=== PATIENT | male | born 1950 | race Caucasian/White ===

== ENCOUNTER 2017-02-25 10:29 | Emergency (ER) | payer MEDICARE, OTHER ==
--- NOTE | 2017-02-25 10:57 | ERPHSYRPT ---
- History of Present Illness Time Seen by Provider: 02/25/17 10:48 Source: patient Exam Limitations: no limitations Patient Subjective Stated Complaint: PT REPORTS HE HAD SUDDEN ONLSET OF SOB- STATES HE ALL OF A SUDDEN COULDN'T BREATH-REPORTS THIS IS NOT A PANIC ATTACK BECAUSE HE DOEN'T FEEL LIKE HIS HEART IS RACING ET HE IS NOT SWEATING-DENIES PAIN-DENIES FEVER-DENIES COUGH-DENIES N/V-DENIES NUMBNESS OR TINLGING Triage Nursing Assessment: PT ARRIVED AMBULATORY TO ED ANXIOUS HYPERVENTILATING- PALE-CARE PROVIDED ET PT'S BREATHING BECAME CONTROLLED-NO RETRACTIONS NOTED- LUNGS CLEAR ET EQUAL-PT MOVING ALL EXTREMITIES WITH EASE-ANSWERING ALL QEUSTIONS CORRECTLY WITH NO DIFFICUTLY-PUPILS PERRL Physician History: This is a 66-year-old white male with history of diabetes rheumatoid arthritis and anxiety. Arrives with complaint of sudden onset of shortness of breath felt as if he is going to pass out upon standing up at approximately 8:30 this morning. He states he's been having some pain in the left of lumbar region after falling several days ago. Has no chest pain. Past medical history includes diabetes type 2, rheumatoid arthritis, arrhythmia Past surgery includes cholecystectomy kidney surgery Timing/Duration: today Severity: moderate Modifying Factors: Improves With: nothing Associated Symptoms: shortness of breath, other (dizziness), No nausea, No vomiting, No abdominal pain, No heartburn, No diaphoresis, No cough, No chills, No chest pain, No fever, No headaches, No loss of appetite, No malaise, No rash , No syncope, No seizure, No weakness Allergies/Adverse Reactions: diazepam [From Valium] Allergy (Mild, Verified 02/25/17 10:46) HYPERATIVITY Home Medications: Alprazolam 0.25 mg [xanAX 0.25 MG] 0.25 mg PO UD 02/25/17 [History] Glimepiride [Amaryl] 1 mg PO DAILY 02/25/17 [History] Metoprolol Succinate 50 mg [Toprol Xl 50 MG] 50 mg PO DAILY 02/25/17 [ History] Ondansetron HCl [Zofran] 4 mg PO UD 02/25/17 [History] Oxycodone HCl/Acetaminophen [Percocet 7.5-325 mg Tablet] 1 each PO UD 02/25/17 [ History] Hx Tetanus, Diphtheria Vaccination/Date Given: Yes Hx Influenza Vaccination/Date Given: No Hx Pneumococcal Vaccination/Date Given: No Immunizations Up to Date: Yes - Review of Systems Constitutional: No Fever, No Chills Eyes: No Symptoms Ears, Nose, & Throat: No Symptoms Respiratory: Dyspnea, No Cough, No Cyanosis, No Dyspnea on Exertion (FIGUEROA), No Stridor, No Wheezing Cardiac: No Chest Pain, No Edema, No Syncope Abdominal/Gastrointestinal: No Abdominal Pain, No Nausea, No Vomiting, No Diarrhea Genitourinary Symptoms: No Dysuria Musculoskeletal: No Back Pain, No Neck Pain Skin: No Rash Neurological: Other (patient felt that he was going to pass out), No Dizziness, No Focal Weakness, No Sensory Changes Psychological: No Symptoms Endocrine: No Symptoms All Other Systems: Reviewed and Negative - Past Medical History Pertinent Past Medical History: Yes Cardiac History: Arrhythmia Endocrine Medical History: Diabetes Type II Musculoskeletal History: Rheumatoid Arthritis Psycho-Social History: Anxiety - Past Surgical History Past Surgical History: Yes Gastrointestinal: Cholecystectomy Genitourinary: Kidney Surgery - Social History Smoking Status: Never smoker Exposure to second hand smoke: No Drug Use: none Patient Lives Alone: No - Nursing Vital Signs Nursing Vital Signs: Initial Vital Signs Temperature 97.9 F 02/25/17 10:41 Pulse Rate 60 02/25/17 10:41 Respiratory Rate 22 02/25/17 10:41 Blood Pressure 151/86 02/25/17 10:41 O2 Sat by Pulse Oximetry 100 02/25/17 10:41 Pain Scale Pain Intensity 0 - Physical Exam General Appearance: no apparent distress, alert Eye Exam: PERRL/EOMI, eyes nml inspection Ears, Nose, Throat Exam: normal ENT inspection, TMs normal, pharynx normal, moist mucous membranes Neck Exam: normal inspection, non-tender, supple, full range of motion Respiratory Exam: normal breath sounds, lungs clear, No respiratory distress Cardiovascular Exam: regular rate/rhythm, normal heart sounds, normal peripheral pulses Gastrointestinal/Abdomen Exam: soft, normal bowel sounds, No tenderness, No mass Back Exam: normal inspection, normal range of motion, No CVA tenderness, No vertebral tenderness Extremity Exam: normal inspection, normal range of motion, pelvis stable Neurologic Exam: alert, oriented x 3, cooperative, normal mood/affect, nml cerebellar function, nml station & gait, sensation nml, No motor deficits Skin Exam: normal color, warm, dry, No rash Lymphatic Exam: No adenopathy SpO2 Interpretation: normal (100%) SpO2: 100 Oxygen Delivery: Room Air - Course Nursing assessment & vital signs reviewed: Yes EKG Interpreted by Me: RATE (50 bpm), Sinus Alex, NORMAL AXIS, Other (EKG: Sinus bradycardia, 50 bpm, normal axis, no acute ST or T wave changes noted) - Radiology Exams Chest X-ray Interpretation: Discussed w/ radiologist (chest x-ray: Impression: Nonacute underinflated chest with chronic features) Ordered Tests: Active Orders 24 hr Category Date Time Status Accucheck STAT Care 02/25/17 10:52 Active EKG-ER Only STAT Care 02/25/17 10:51 Active IV Insertion STAT Care 02/25/17 10:51 Active Orthostatic Vital Signs STAT Care 02/25/17 10:53 Active CHEST 1 VIEW (PORTABLE) Stat Exams 02/25/17 11:38 Completed AMYLASE Stat Lab 02/25/17 10:50 Completed CBC W DIFF Stat Lab 02/25/17 10:50 Completed CMP Stat Lab 02/25/17 10:50 Completed D-DIMER QUANTITATION Stat Lab 02/25/17 10:50 Completed LIPASE Stat Lab 02/25/17 10:50 Completed PROTIME WITH INR Stat Lab 02/25/17 11:39 Completed PTT Stat Lab 02/25/17 11:39 Completed TROPONIN Q3H Lab 02/25/17 10:50 Completed TROPONIN Q3H Lab 02/25/17 14:00 Ordered TROPONIN Q3H Lab 02/25/17 17:00 Ordered TROPONIN Q3H Lab 02/25/17 20:00 Ordered TROPONIN Q3H Lab 02/25/17 23:00 Ordered UA W/ MICROSCOPIC Stat Lab 02/25/17 11:45 Results Urine Triage Profile Stat Lab 02/25/17 11:45 Completed Medication Summary Generic Name Dose Route Start Last Admin Trade Name Freq PRN Reason Stop Dose Admin Sodium Chloride 1,000 mls @ 100 mls/hr 02/25/17 11:00 02/25/17 11:02 Sodium Chloride 0.9% 1000 Ml IV 03/27/17 10:59 100 mls/hr .Q10H JORDAN Administration Lab/Rad Data: Laboratory Result Diagrams 02/25/17 10:50 02/25/17 10:50 Laboratory Results 02/25/17 02/25/17 02/25/17 Range/Units 11:45 11:45 11:39 WBC (4.0-10.5) K/mm3 RBC (4.1-5.6) M/mm3 Hgb (12.5-18.0) gm/dl Hct (42-50) % MCV (78-100) fl MCH (26-32) pg MCHC (32-36) g/dl RDW (11.5-14.0) % Plt Count (150-450) K/mm3 MPV (6-9.5) fl Gran % (36.0-66.0) % Lymphocytes % (24.0-44.0) % Monocytes % (0.0-12.0) % Eosinophils % (0.00-5.0) % Basophils % (0.0-0.4) % Basophils # (0-0.4) INR 1.13 (0.8-3.0) APTT 30.7 (24.1-36.1) SECONDS D-Dimer (0-500) ng/mL Sodium (136-145) mEq/L Potassium (3.5-5.1) mEq/L Chloride (98-107) mEq/L Carbon Dioxide (21-32) mEq/L Anion Gap (5-15) MEQ/L BUN (9-20) mg/dL Creatinine (0.55-1.30) mg/dl Estimated GFR ML/MIN Glucose (70-110) MG/DL Calcium (8.5-10.1) mg/dL Total Bilirubin (0.2-1.0) mg/dL AST (15-37) U/L ALT (12-78) U/L Alkaline Phosphatase (46-116) U/L Troponin I (0.000-0.056) ng/ml Serum Total Protein (6.4-8.2) gm/dL Albumin (3.4-5.0) g/dL Amylase (25-115) U/L Lipase (73-393) U/L Ur Collection Type VOID Urine Color YELLOW (YELLOW) Urine Appearance CLEAR (CLEAR) Urine pH 5.0 (5-6) Ur Specific [place] 1.020 (1.005-1.025) Urine Protein NEGATIVE (Negative) Urine Ketones TRACE (NEGATIVE) Urine Blood NEGATIVE (0-5) Prashanth/ul Urine Nitrite NEGATIVE (NEGATIVE) Urine Bilirubin NEGATIVE (NEGATIVE) Urine Urobilinogen NORMAL (0-1) mg/dL Ur Leukocyte Esterase NEGATIVE (NEGATIVE) Urine Microscopic RBC 0-2 (0-2) /HPF Urine Microscopic WBC 0-2 (0-5) /HPF Ur Epithelial Cells RARE (FEW) /HPF Urine Culture Reflexed Pending Urine Glucose 50 (NEGATIVE) mg/dL Urine Opiates Level NEG. (NEGATIVE) Ur Methadone NEG. (NEGATIVE) Urine Barbiturates NEG. (NEGATIVE) Ur Phencyclidine (PCP) NEG. (NEGATIVE) Urine Amphetamine NEG. (NEGATIVE) U Benzodiazepine Level NEG. (NEGATIVE) Urine Cocaine NEG. (NEGATIVE) Urine Marijuana (THC) NEG. (NEGATIVE) Specimen Received 02/25/17 1215 02/25/17 02/25/17 02/25/17 Range/Units 10:50 10:50 10:50 WBC (4.0-10.5) K/mm3 RBC (4.1-5.6) M/mm3 Hgb (12.5-18.0) gm/dl Hct (42-50) % MCV (78-100) fl MCH (26-32) pg MCHC (32-36) g/dl RDW (11.5-14.0) % Plt Count (150-450) K/mm3 MPV (6-9.5) fl Gran % (36.0-66.0) % Lymphocytes % (24.0-44.0) % Monocytes % (0.0-12.0) % Eosinophils % (0.00-5.0) % Basophils % (0.0-0.4) % Basophils # (0-0.4) INR (0.8-3.0) APTT (24.1-36.1) SECONDS D-Dimer 2223 H* (0-500) ng/mL Sodium 136 (136-145) mEq/L Potassium 4.2 (3.5-5.1) mEq/L Chloride 99 (98-107) mEq/L Carbon Dioxide 24.7 (21-32) mEq/L Anion Gap 16.0 H (5-15) MEQ/L BUN 19 (9-20) mg/dL Creatinine 1.51 H (0.55-1.30) mg/dl Estimated GFR 49 ML/MIN Glucose 172 H (70-110) MG/DL Calcium 9.8 (8.5-10.1) mg/dL Total Bilirubin 1.00 (0.2-1.0) mg/dL AST 79 H (15-37) U/L ALT 66 (12-78) U/L Alkaline Phosphatase 143 H (46-116) U/L Troponin I < 0.017 (0.000-0.056) ng/ml Serum Total Protein 8.4 H (6.4-8.2) gm/dL Albumin 3.7 (3.4-5.0) g/dL Amylase 97 (25-115) U/L Lipase 340 (73-393) U/L Ur Collection Type Urine Color (YELLOW) Urine Appearance (CLEAR) Urine pH (5-6) Ur Specific [place] (1.005-1.025) Urine Protein (Negative) Urine Ketones (NEGATIVE) Urine Blood (0-5) Prashanth/ul Urine Nitrite (NEGATIVE) Urine Bilirubin (NEGATIVE) Urine Urobilinogen (0-1) mg/dL Ur Leukocyte Esterase (NEGATIVE) Urine Microscopic RBC (0-2) /HPF Urine Microscopic WBC (0-5) /HPF Ur Epithelial Cells (FEW) /HPF Urine Culture Reflexed Urine Glucose (NEGATIVE) mg/dL Urine Opiates Level (NEGATIVE) Ur Methadone (NEGATIVE) Urine Barbiturates (NEGATIVE) Ur Phencyclidine (PCP) (NEGATIVE) Urine Amphetamine (NEGATIVE) U Benzodiazepine Level (NEGATIVE) Urine Cocaine (NEGATIVE) Urine Marijuana (THC) (NEGATIVE) Specimen Received 02/25/17 Range/Units 10:50 WBC 8.6 (4.0-10.5) K/mm3 RBC 4.86 (4.1-5.6) M/mm3 Hgb 13.1 (12.5-18.0) gm/dl Hct 39.5 L (42-50) % MCV 81.3 (78-100) fl MCH 27.0 (26-32) pg MCHC 33.2 (32-36) g/dl RDW 13.2 (11.5-14.0) % Plt Count 267 (150-450) K/mm3 MPV 11.1 H (6-9.5) fl Gran % 68.1 H (36.0-66.0) % Lymphocytes % 19.0 L (24.0-44.0) % Monocytes % 10.6 (0.0-12.0) % Eosinophils % 2.0 (0.00-5.0) % Basophils % 0.3 (0.0-0.4) % Basophils # 0.03 (0-0.4) INR (0.8-3.0) APTT (24.1-36.1) SECONDS D-Dimer (0-500) ng/mL Sodium (136-145) mEq/L Potassium (3.5-5.1) mEq/L Chloride (98-107) mEq/L Carbon Dioxide (21-32) mEq/L Anion Gap (5-15) MEQ/L BUN (9-20) mg/dL Creatinine (0.55-1.30) mg/dl Estimated GFR ML/MIN Glucose (70-110) MG/DL Calcium (8.5-10.1) mg/dL Total Bilirubin (0.2-1.0) mg/dL AST (15-37) U/L ALT (12-78) U/L Alkaline Phosphatase (46-116) U/L Troponin I (0.000-0.056) ng/ml Serum Total Protein (6.4-8.2) gm/dL Albumin (3.4-5.0) g/dL Amylase (25-115) U/L Lipase (73-393) U/L Ur Collection Type Urine Color (YELLOW) Urine Appearance (CLEAR) Urine pH (5-6) Ur Specific [place] (1.005-1.025) Urine Protein (Negative) Urine Ketones (NEGATIVE) Urine Blood (0-5) Prashanth/ul Urine Nitrite (NEGATIVE) Urine Bilirubin (NEGATIVE) Urine Urobilinogen (0-1) mg/dL Ur Leukocyte Esterase (NEGATIVE) Urine Microscopic RBC (0-2) /HPF Urine Microscopic WBC (0-5) /HPF Ur Epithelial Cells (FEW) /HPF Urine Culture Reflexed Urine Glucose (NEGATIVE) mg/dL Urine Opiates Level (NEGATIVE) Ur Methadone (NEGATIVE) Urine Barbiturates (NEGATIVE) Ur Phencyclidine (PCP) (NEGATIVE) Urine Amphetamine (NEGATIVE) U Benzodiazepine Level (NEGATIVE) Urine Cocaine (NEGATIVE) Urine Marijuana (THC) (NEGATIVE) Specimen Received - Progress Progress: improved Progress Note: 02/25/17 12:32 This 66-year-old white male with history of rheumatoid arthritis diabetes arrhythmia and anxiety Patient with sudden onset of shortness of breath dizziness at about 8:30 this morning. Patient states this did not feel like his anxiety episode secondary to he was not having a rapid heart rate. Patient with a sinus bradycardia on EKG labs essentially normal with the exception of a d-dimer of 2223 which is elevated. Patient with a GFR of 49 therefore cannot give the patient contrast for CTA. Patient is being given IV fluids vitals are stable he does have a history of a fall several days ago and some complaints of some mild left posterior low lumbar pain laterally. EKG appears to be stable orthostatic vital signs are stable. Patient wishes to go to [facility] if admitted. I contacted Juan Carlos Jackson at [facility] emergency room he has excepted the patient for transfer. Will forgo anticoagulants at this point in view of patient's recent fall. Patient will most likely received a VQ scan or other studies at [facility]. - Departure Time of Disposition: 12:35 Departure Disposition: Transfer ([facility] ) Clinical Impression: Shortness of breath, Dizziness Condition: Fair Critical Care Time: No Referrals: JANETT EUGENE [Primary Care Provider] -
[2017-02-25] MEDS ORDERED: Sodium Chloride 0.9% 1000 ML 1,000 ML IV SCH (11:00)
[2017-02-25] MEDS ORDERED: Sodium Chloride 0.9% 1000 ML 1,000 ML ONE (11:00)
[2017-02-25 11:04] LABS: BASOPHIL % 0.3 % (0.0-0.4); Granulocytes % 68.1 % (36.0-66.0); Mean Cell Volume 81.3 fl (78-100); Mean Platelet Volume 11.1 fl (6-9.5); Monocytes % 10.6 % (0.0-12.0); Platelet Count 267 K/mm3 (150-450); Red Blood Count 4.86 M/mm3 (4.1-5.6); Red Cell Distribution Width 13.2 % (11.5-14.0); White Blood Count 8.6 K/mm3 (4.0-10.5)
[2017-02-25 11:20] LABS: ALBUMIN 3.7 g/dL (3.4-5.0); Carbon Dioxide 24.7 mEq/L (21-32); Potassium 4.2 mEq/L (3.5-5.1); Total Protein 8.4 gm/dL (6.4-8.2)
[2017-02-25 11:52] LABS: INR 1.13 (0.8-3.0); PROTIME 12.6 SECONDS (8.83-12.87)
[2017-02-25 11:55] LABS: PTT 30.7 SECONDS (24.1-36.1)
[2017-02-25 11:57] VITALS: O2SAT 100
--- NOTE | 2017-02-25 12:09 | XRAY ---
Indication: Short of breath. Comparison: July 13, 2016. Portable chest remains underinflated accentuating the cardiopulmonary structures. Stable left mid lung calcified granuloma. No focal infiltrate, consolidation, or large effusion. Heart is not enlarged for AP portable technique. Bony thorax intact again with degenerative changes. Impression: Nonacute underinflated chest with chronic features.
[2017-02-25 12:24] LABS: Bilirubin NEGATIVE (NEGATIVE); Blood NEGATIVE Ery/ul (0-5); COMPLETE URINE MICROSCOPIC? YES; Collection Type VOID; Leukocyte Esterase NEGATIVE (NEGATIVE)
[2017-02-25 12:25] LABS: Epithelial Cells RARE /HPF (FEW); Glucose 50 mg/dL (NEGATIVE); WBC 0-2 /HPF (0-5)
[2017-02-25 13:14] VITALS: BP 141/75; PULSE 57
[2017-02-25 15:30] LABS: ADD URINE CULTURE? NO (NO)
== END 2017-02-25 13:21 | disposition short-term general hospital (02) ==
LOC: ED 10:29
DX: R06.02 Shortness of breath (principal); R42 Dizziness and giddiness; E11.9 Type 2 diabetes mellitus without complications
CPT/HCPCS: 36000; 36415; 71010; 80053; 80307; 81000; 82150; 82962; 83690; 84484; 85025; 85379; 85610; 85730; 93005; 96360; 96361; 99285

== ENCOUNTER 2017-04-22 09:15 | Emergency (ER) | payer MEDICARE, OTHER ==
[2017-04-22] MEDS ORDERED: Vistaril 50 MG/ML IM ONE ×2 (09:30→09:44)
[2017-04-22] MEDS ORDERED: Sodium Chloride 0.9% 1000 ML 1,000 ML IV SCH (09:30)
--- NOTE | 2017-04-22 09:40 | ERPHSYRPT ---
- History of Present Illness Time Seen by Provider: 04/22/17 09:23 Source: patient Patient Subjective Stated Complaint: pt here for panic attack today but states he is been more nervous the last 10 days, Triage Nursing Assessment: pt alert, resp labored at times, anxious, skin w/d pink, chest easy, Physician History: CC: anxious Hx: 67 y/o patient of dr Janett Causey with hx of anxiety for which he uses xanax prn. He has been anxious for a couple of weeks. Off and on problems with this in the past. He read on the internet about using deep breathing techniques and that usually helps him feel better. He has been to ER twice for this in the past. He has no specific stress or inciting event. He felt more anxious today, chest pressure, short of breath, dizzy when up. 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 No fever, chills, or coughing. He has hx of DM, RA. No hx of heart disease. Allergies/Adverse Reactions: diazepam [From Valium] Allergy (Mild, Verified 04/22/17 09:25) HYPERATIVITY Home Medications: Alprazolam 0.25 mg [xanAX 0.25 MG] 0.25 mg PO UD 02/25/17 [History] Glimepiride [Amaryl] 1 mg PO DAILY 02/25/17 [History] Oxycodone HCl/Acetaminophen [Percocet 7.5-325 mg Tablet] 1 each PO UD 02/25/17 [ History] Hx Tetanus, Diphtheria Vaccination/Date Given: Yes Hx Influenza Vaccination/Date Given: Yes Hx Pneumococcal Vaccination/Date Given: Yes Immunizations Up to Date: Yes - Review of Systems Constitutional: No Fever, No Chills, No Malaise Eyes: No Symptoms, No Vision Changes Ears, Nose, & Throat: No Symptoms Respiratory: Dyspnea, No Cough Cardiac: Chest Pain, No Palpitations, No Syncope Abdominal/Gastrointestinal: No Abdominal Pain, No Nausea, No Vomiting Genitourinary Symptoms: No Symptoms Musculoskeletal: Joint Pain (RA) Neurological: No Focal Weakness, No Parasthesia Psychological: Anxiety, No Alcohol Abuse, No Drug Abuse, No Suicidal Ideations, No Homicidal Ideations All Other Systems: Reviewed and Negative - Past Medical History Pertinent Past Medical History: Yes Cardiac History: Arrhythmia Endocrine Medical History: Diabetes Type II Musculoskeletal History: Rheumatoid Arthritis Psycho-Social History: Anxiety - Past Surgical History Past Surgical History: Yes Gastrointestinal: Cholecystectomy Genitourinary: Kidney Surgery - Social History Smoking Status: Never smoker Exposure to second hand smoke: Yes Drug Use: none Patient Lives Alone: No - Nursing Vital Signs Nursing Vital Signs: Initial Vital Signs Temperature 97.2 F 04/22/17 09:28 Pulse Rate 64 04/22/17 09:28 Respiratory Rate 26 H 04/22/17 09:28 Blood Pressure 147/81 04/22/17 09:28 O2 Sat by Pulse Oximetry 98 04/22/17 09:28 Pain Scale Pain Intensity 0 - Physical Exam General Appearance: alert, other (tall, pacing in room, very anxious appearing) Eye Exam: PERRL/EOMI Ears, Nose, Throat Exam: normal ENT inspection, moist mucous membranes Neck Exam: normal inspection, non-tender, supple Respiratory Exam: normal breath sounds Cardiovascular Exam: regular rate/rhythm, No murmur, No friction rub, No gallop Gastrointestinal/Abdomen Exam: soft, No tenderness, No distention, No mass, No guarding Back Exam: normal inspection Extremity Exam: normal inspection, normal range of motion Neurologic Exam: alert, oriented x 3, 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, 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, nml station & gait, sensation nml, No motor deficits Skin Exam: warm, dry, No rash SpO2 Interpretation: normal SpO2: 98 Oxygen Delivery: Room Air - Course Nursing assessment & vital signs reviewed: Yes EKG Interpreted by Me: RATE (55), Sinus Alex, NORMAL AXIS, NORMAL INTERVALS ( [id number]), NORMAL QRS, NORMAL ST-T, Other (unchanged from prior) - Radiology Exams cxr X-ray Interpretation: Teleradiologist Report, Negative Ordered Tests: Active Orders 24 hr Category Date Time Status [place] STAT Care 04/22/17 09:31 Active Clean Catch Urine Specimen STAT Care 04/22/17 09:30 Active EKG-ER Only STAT Care 04/22/17 09:30 Active IV Insertion STAT Care 04/22/17 09:30 Active CHEST 2 VIEWS (PA AND LAT) Stat Exams 04/22/17 09:31 Completed CBC W DIFF Stat Lab 04/22/17 09:40 Completed CMP Stat Lab 04/22/17 09:40 Completed TROPONIN Q3H Lab 04/22/17 09:45 Completed TROPONIN Q3H Lab 04/22/17 12:45 Ordered TROPONIN Q3H Lab 04/22/17 15:45 Ordered TROPONIN Q3H Lab 04/22/17 18:45 Ordered TROPONIN Q3H Lab 04/22/17 21:45 Ordered UA W/ MICROSCOPIC Stat Lab 04/22/17 10:15 Completed Urine Triage Profile Stat Lab 04/22/17 10:00 Completed Medication Summary Generic Name Dose Route Start Last Admin Trade Name Freq PRN Reason Stop Dose Admin Sodium Chloride 1,000 mls @ 250 mls/hr 04/22/17 09:30 04/22/17 09:45 Sodium Chloride 0.9% 1000 Ml IV 05/22/17 09:29 250 mls/hr .Q4H JORDAN Administration Discontinued Medications Generic Name Dose Route Start Last Admin Trade Name Freq PRN Reason Stop Dose Admin Hydroxyzine HCl 50 mg 04/22/17 09:30 04/22/17 09:44 Vistaril 50 Mg/Ml IM 04/22/17 09:31 50 mg STAT ONE Administration Hydroxyzine HCl Confirm 04/22/17 09:44 Vistaril 50 Mg/Ml Administered 04/22/17 09:45 Dose 50 mg IM .STRefurrl-MED ONE Lab/Rad Data: Laboratory Result Diagrams 04/22/17 09:40 04/22/17 09:40 Laboratory Results 04/22/17 04/22/17 04/22/17 Range/Units 10:15 10:00 09:45 WBC (4.0-10.5) K/mm3 RBC (4.1-5.6) M/mm3 Hgb (12.5-18.0) gm/dl Hct (42-50) % MCV (78-100) fl MCH (26-32) pg MCHC (32-36) g/dl RDW (11.5-14.0) % Plt Count (150-450) K/mm3 MPV (6-9.5) fl Gran % (36.0-66.0) % Lymphocytes % (24.0-44.0) % Monocytes % (0.0-12.0) % Eosinophils % (0.00-5.0) % Basophils % (0.0-0.4) % Basophils # (0-0.4) Sodium (136-145) mEq/L Potassium (3.5-5.1) mEq/L Chloride (98-107) mEq/L Carbon Dioxide (21-32) mEq/L Anion Gap (5-15) MEQ/L BUN (9-20) mg/dL Creatinine (0.55-1.30) mg/dl Estimated GFR ML/MIN Glucose (70-110) MG/DL Calcium (8.5-10.1) mg/dL Total Bilirubin (0.2-1.0) mg/dL AST (15-37) U/L ALT (12-78) U/L Alkaline Phosphatase (46-116) U/L Troponin I < 0.017 (0.000-0.056) ng/ml Serum Total Protein (6.4-8.2) gm/dL Albumin (3.4-5.0) g/dL Ur Collection Type VOID Urine Color YELLOW (YELLOW) Urine Appearance CLEAR (CLEAR) Urine pH 5.0 (5-6) Ur Specific [employer] 1.020 (1.005-1.025) Urine Protein 50 (Negative) Urine Ketones NEGATIVE (NEGATIVE) Urine Blood 5-10 (0-5) Prashanth/ul Urine Nitrite NEGATIVE (NEGATIVE) Urine Bilirubin NEGATIVE (NEGATIVE) Urine Urobilinogen NORMAL (0-1) mg/dL Ur Leukocyte Esterase NEGATIVE (NEGATIVE) Urine Microscopic RBC 2-5 (0-2) /HPF Urine Microscopic WBC 0-2 (0-5) /HPF Ur Epithelial Cells RARE (FEW) /HPF Urine Bacteria RARE (NEGATIVE) /HPF Hyaline Casts 0-2 (0-2) /LPF Granular Casts 0-2 (NEGATIVE) /LPF Urine Mucus SLIGHT (NEGATIVE) /HPF Urine Culture Reflexed NO (NO) Urine Glucose 250 (NEGATIVE) mg/dL Urine Opiates Level NEG. (NEGATIVE) Ur Methadone NEG. (NEGATIVE) Urine Barbiturates NEG. (NEGATIVE) Ur Phencyclidine (PCP) NEG. (NEGATIVE) Urine Amphetamine NEG. (NEGATIVE) U Benzodiazepine Level NEG. (NEGATIVE) Urine Cocaine NEG. (NEGATIVE) Urine Marijuana (THC) NEG. (NEGATIVE) Specimen Received 04/22/17 0915 04/22/17 04/22/17 Range/Units 09:40 09:40 WBC 9.7 (4.0-10.5) K/mm3 RBC 4.71 (4.1-5.6) M/mm3 Hgb 12.3 L (12.5-18.0) gm/dl Hct 38.0 L (42-50) % MCV 80.7 (78-100) fl MCH 26.1 (26-32) pg MCHC 32.4 (32-36) g/dl RDW 13.2 (11.5-14.0) % Plt Count 264 (150-450) K/mm3 MPV 10.7 H (6-9.5) fl Gran % 59.8 (36.0-66.0) % Lymphocytes % 28.7 (24.0-44.0) % Monocytes % 8.7 (0.0-12.0) % Eosinophils % 2.1 (0.00-5.0) % Basophils % 0.7 (0.0-0.4) % Basophils # 0.07 (0-0.4) Sodium 136 (136-145) mEq/L Potassium 3.5 (3.5-5.1) mEq/L Chloride 101 (98-107) mEq/L Carbon Dioxide 22.9 (21-32) mEq/L Anion Gap 16.0 H (5-15) MEQ/L BUN 13 (9-20) mg/dL Creatinine 1.43 H (0.55-1.30) mg/dl Estimated GFR 52 ML/MIN Glucose 194 H (70-110) MG/DL Calcium 8.9 (8.5-10.1) mg/dL Total Bilirubin 0.70 (0.2-1.0) mg/dL AST 60 H (15-37) U/L ALT 33 (12-78) U/L Alkaline Phosphatase 120 H (46-116) U/L Troponin I (0.000-0.056) ng/ml Serum Total Protein 7.6 (6.4-8.2) gm/dL Albumin 3.5 (3.4-5.0) g/dL Ur Collection Type Urine Color (YELLOW) Urine Appearance (CLEAR) Urine pH (5-6) Ur Specific [employer] (1.005-1.025) Urine Protein (Negative) Urine Ketones (NEGATIVE) Urine Blood (0-5) Prashanth/ul Urine Nitrite (NEGATIVE) Urine Bilirubin (NEGATIVE) Urine Urobilinogen (0-1) mg/dL Ur Leukocyte Esterase (NEGATIVE) Urine Microscopic RBC (0-2) /HPF Urine Microscopic WBC (0-5) /HPF Ur Epithelial Cells (FEW) /HPF Urine Bacteria (NEGATIVE) /HPF Hyaline Casts (0-2) /LPF Granular Casts (NEGATIVE) /LPF Urine Mucus (NEGATIVE) /HPF Urine Culture Reflexed (NO) Urine Glucose (NEGATIVE) mg/dL Urine Opiates Level (NEGATIVE) Ur Methadone (NEGATIVE) Urine Barbiturates (NEGATIVE) Ur Phencyclidine (PCP) (NEGATIVE) Urine Amphetamine (NEGATIVE) U Benzodiazepine Level (NEGATIVE) Urine Cocaine (NEGATIVE) Urine Marijuana (THC) (NEGATIVE) Specimen Received - Progress Progress Note: 04/22/17 10:49 The pt feels better after IM vistaril. The tingling in his extermities is now gone. No pain or pressure. Reviewed test results. He is not interested in repeat troponin after discussion. Advised he consider mental health counsellor for biofeedback and anxiety and consider prevention medication. Discussed options of [facility]. He wants to stay close to home so will be referred to geriatric psych at [facility]. Advised no driving and stay with family today. Counseled pt/family regarding: lab results, diagnosis, need for follow-up, rad results - Departure Time of Disposition: 10:52 Departure Disposition: Home Clinical Impression: Panic attacks Condition: Stable Critical Care Time: No Referrals: JANETT CAUSEY [Primary Care Provider] - Instructions: Anxiety -- Adult, Panic Disorder Additional Instructions: No driving today and stay with family. Return for problems or concerns. Follow up with Dr Causey. Yaz Leal ([phone]) will contact you about counsellor appointment.
[2017-04-22] MEDS ORDERED: Sodium Chloride 0.9% 1000 ML 1,000 ML ONE (09:44)
[2017-04-22 09:54] LABS: BASOPHIL % 0.7 % (0.0-0.4); Eosinophil % 2.1 % (0.00-5.0); Granulocytes % 59.8 % (36.0-66.0); Lymphocytes % 28.7 % (24.0-44.0); Mean Cell Volume 80.7 fl (78-100); Mean Corpuscular Hemoglobin 26.1 pg (26-32); Mean Platelet Volume 10.7 fl (6-9.5); Monocytes % 8.7 % (0.0-12.0); Platelet Count 264 K/mm3 (150-450); Red Blood Count 4.71 M/mm3 (4.1-5.6); Red Cell Distribution Width 13.2 % (11.5-14.0); White Blood Count 9.7 K/mm3 (4.0-10.5)
[2017-04-22 10:11] LABS: ALBUMIN 3.5 g/dL (3.4-5.0); BILIRUBIN,TOTAL 0.7 mg/dL (0.2-1.0); Carbon Dioxide 22.9 mEq/L (21-32); Potassium 3.5 mEq/L (3.5-5.1); Total Protein 7.6 gm/dL (6.4-8.2)
[2017-04-22 10:21] LABS: Bilirubin NEGATIVE (NEGATIVE); COMPLETE URINE MICROSCOPIC? YES; Collection Type VOID; Glucose 250 mg/dL (NEGATIVE); Leukocyte Esterase NEGATIVE (NEGATIVE)
[2017-04-22 10:33] LABS: ADD URINE CULTURE? NO (NO); Bacteria RARE /HPF (NEGATIVE); Epithelial Cells RARE /HPF (FEW); GRANULAR CASTS 0-2 /LPF (NEGATIVE); Hyaline Casts 0-2 /LPF (0-2); Mucus SLIGHT /HPF (NEGATIVE); WBC 0-2 /HPF (0-5)
--- NOTE | 2017-04-22 10:35 | XRAY ---
Indication: Chest pain and dyspnea. Anxiety. Comparison: February 25, 2017. PA/lateral chest remains slightly underinflated and clear. Heart and mediastinal structures are stable and within normal limits. Bony thorax intact again with mild degenerative changes. Impression: Stable nonacute chest.
[2017-04-22 10:59] VITALS: O2SAT 98
[2017-04-22 12:28] VITALS: BP 151/70; PULSE 54
== END 2017-04-22 11:17 | disposition home or self-care (01) ==
LOC: ED 09:15
DX: F41.0 Panic disorder [episodic paroxysmal anxiety] (principal); E11.9 Type 2 diabetes mellitus without complications; Z79.899 Other long term (current) drug therapy
CPT/HCPCS: 36000; 36415; 71020; 80053; 80307; 81000; 84484; 85025; 93005; 93041; 96360; 96361; 96372; 99284; J3410

== ENCOUNTER 2020-06-21 17:52 | Emergency (ER) | payer MEDICARE, OTHER ==
[2020-06-21] MEDS ORDERED: BABY ASPIRIN 81 MG CHEW PO ONE (18:26)
[2020-06-21] MEDS ORDERED: Sodium Chloride 0.9% 1000 ML 1,000 ML IV STA (18:26)
[2020-06-21] MEDS ORDERED: Sodium Chloride 0.9% 1000 ML 1,000 ML ONE (18:32)
[2020-06-21] MEDS ORDERED: BABY ASPIRIN 81 MG CHEW ONE (18:32)
[2020-06-21 18:44] LABS: Hematocrit 38.7 % (42-50); Hemoglobin 11.9 gm/dl (12.5-18.0); Mean Cell Volume 85.4 fl (78-100); Mean Corpuscular Hemoglobin 26.3 pg (26-32); Mean Corpuscular Hgb Concent. 30.7 g/dl (32-36); Mean Platelet Volume 11.6 fl (7.5-11.0); Platelet Count 362 K/mm3 (150-450); Red Blood Count 4.53 M/mm3 (4.1-5.6); Red Cell Distribution Width 13.5 % (11.5-14.0); White Blood Count 10.7 K/mm3 (4.0-10.5)
[2020-06-21 19:05] LABS: Appearance CLEAR (CLEAR); Bilirubin NEGATIVE (NEGATIVE); Blood NEGATIVE Ery/ul (0-5); Glucose >=500 mg/dL (NEGATIVE); Ketones TRACE (NEGATIVE); Leukocyte Esterase NEGATIVE (NEGATIVE); Mucus SLIGHT /HPF (NEGATIVE); Nitrite NEGATIVE (NEGATIVE); Protein,Urine Dip 30 (Negative); RBC 0-2 /HPF (0-2); Specific Gravity 1.024 (1.005-1.025); Urobilinogen NEGATIVE mg/dL (0-1); WBC 0-2 /HPF (0-5)
[2020-06-21 19:06] LABS: ALBUMIN 3.9 g/dL (3.5-5.0); ALKALINE PHOSPHATASE 152 U/L (38-126); ANION GAP 18.9 MEQ/L (5-15); BLOOD UREA NITROGEN 17 mg/dL (9-20); CHLORIDE 100 mmol/L (98-107); Calcium 9.9 mg/dL (8.4-10.2); Carbon Dioxide 21 mmol/L (22-30); Creatinine 1 0.97 mg/dL (0.66-1.25); EST GLOMERULAR FILTRATION RATE > 60.0 ML/MIN; Glucose 362 mg/dL (74-106); NT PRO BNP 169 pg/mL (0-900); Potassium 5.8 mmol/L (3.5-5.1); SGOT/AST 22 U/L (17-59); SGPT/ALT 18 U/L (0-50); SODIUM 134 mmol/L (137-145); Total Protein 7.4 g/dL (6.3-8.2)
[2020-06-21 19:15] LABS: Bacteria NONE SEEN /HPF (NEGATIVE)
[2020-06-21 19:38] LABS: Lymphocytes 9 % (24-44); Monocyte 1 % (0.0-12.0); Neutrophils 90 % (36.-66.); Platelet Estimate NORMAL (NORMAL); Total Cells Counted 100
[2020-06-21] MEDS ORDERED: HUMULIN R IV ONE (20:27)
[2020-06-21] MEDS ORDERED: Kayexylate 15 GM/60 ML PO ONE (20:28)
[2020-06-21] MEDS ORDERED: HUMULIN R ONE (20:31)
[2020-06-21] MEDS ORDERED: Kayexylate 15 GM/60 ML ONE (20:31)
[2020-06-21 21:12] VITALS: BP 159/82
--- NOTE | 2020-06-21 21:49 | ERPHSYRPT ---
- History of Present Illness Time Seen by Provider: 06/21/20 18:26 Source: patient Exam Limitations: no limitations Patient Subjective Stated Complaint: Pt statess "I went down into the basement to throw a breaker and when I came upstairs I broke out into sweats and became short of breath and now I am tired." Triage Nursing Assessment: Pt presented alert and oriented X 3, skin wpd pt ambulates with an uprigth steady gait, able to speak in clear full sentences. pt in no apparent respiratory distress. Physician History: 70 years old male with history of hypertension, diabetes mellitus, anxiety disorder presented in the ER with chief complaint of sudden onset sweating/shortness of breath/lightheadedness after he took a flight of stair up and down almost an hour prior to arrival. He sat down and felt as if he was having palpitations without any chest pain. He also report feeling lightheaded with no room spinning or himself spinning sensation. Without any blurry vision numbness tingling or focal weakness. He started to feel weak tired with no energy to do anything. Patient reports his symptoms resolved on presentation in the ER. Does have history of panic attacks but thinks his symptoms are different than usual panic attacks. Denies any nausea vomiting or abdominal pain. Timing/Duration: today, sudden, improved Severity: moderate Associated Symptoms: shortness of breath Allergies/Adverse Reactions: diazepam [From Valium] Allergy (Mild, Verified 04/22/17 09:25) HYPERATIVITY Home Medications: Glimepiride [Amaryl] 1 mg PO DAILY 02/25/17 [History] Oxycodone HCl/Acetaminophen [Percocet 7.5-325 mg Tablet] 1 each PO UD 02/25/17 [History] Terazosin HCl 1 mg [Hytrin 1 mg] 1 mg PO HS 06/21/20 [History] Hx Tetanus, Diphtheria Vaccination/Date Given: No Hx Influenza Vaccination/Date Given: Yes Hx Pneumococcal Vaccination/Date Given: Yes Immunizations Up to Date: Yes Travel Risk - International Travel Have you traveled outside of the country in past 3 weeks: No - Coronavirus Screening Are you exhibiting any of the following symptoms?: Yes Symptoms: Shortness of Breath Close contact with a COVID-19 positive Pt in past 14-21 Days: No - Review of Systems Constitutional: Fatigue, Weakness Eyes: No Symptoms Ears, Nose, & Throat: No Symptoms Respiratory: Dyspnea Cardiac: Palpitations Abdominal/Gastrointestinal: No Symptoms Genitourinary Symptoms: No Symptoms Musculoskeletal: No Symptoms Skin: No Symptoms Neurological: Dizziness Psychological: Anxiety Endocrine: No Symptoms Hematologic/Lymphatic: No Symptoms Immunological/Allergic: No Symptoms - Past Medical History Pertinent Past Medical History: Yes Cardiac History: Arrhythmia Endocrine Medical History: Diabetes Type II Musculoskeletal History: Rheumatoid Arthritis Psycho-Social History: Anxiety - Past Surgical History Past Surgical History: Yes Gastrointestinal: Cholecystectomy Genitourinary: Kidney Surgery - Social History Smoking Status: Never smoker Exposure to second hand smoke: No Drug Use: none Patient Lives Alone: Yes - Nursing Vital Signs Nursing Vital Signs: Initial Vital Signs Temperature 98.4 F 06/21/20 17:58 Pulse Rate 96 H 06/21/20 17:58 Respiratory Rate 22 06/21/20 17:58 Blood Pressure 177/91 06/21/20 17:58 O2 Sat by Pulse Oximetry 100 06/21/20 17:58 Pain Scale Pain Intensity 0 - Physical Exam General Appearance: no apparent distress, alert, anxiety Eye Exam: PERRL/EOMI, eyes nml inspection Ears, Nose, Throat Exam: normal ENT inspection, TMs normal, pharynx normal Neck Exam: normal inspection, non-tender, supple, full range of motion Respiratory Exam: normal breath sounds, lungs clear, No chest tenderness Cardiovascular Exam: regular rate/rhythm, normal heart sounds Gastrointestinal/Abdomen Exam: soft, normal bowel sounds, No tenderness Back Exam: normal inspection, normal range of motion Extremity Exam: normal inspection, normal range of motion, pelvis stable Neurologic Exam: alert, oriented x 3, 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, 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 tested, nml cerebellar function, nml station & gait, sensation nml Skin Exam: normal color SpO2 Interpretation: normal SpO2: 99 O2 Delivery: Room Air - Course EKG Interpreted by Me: RATE (82), Sinus Rhythm, NORMAL AXIS, NORMAL INTERVALS, Q-wave (Anteroinferior) Ordered Tests: Active Orders 24 hr Category Date Time Status Fence Erector STAT Care 06/21/20 18:27 Active EKG-ER Only STAT Care 06/21/20 18:26 Active IV Insertion STAT Care 06/21/20 18:26 Active Orthostatic Vital Signs STAT Care 06/21/20 18:26 Active POCT Glucose Check STAT Care 06/21/20 18:26 Active CHEST 1 VIEW (PORTABLE) Stat Exams 06/21/20 18:27 Taken CHEST WITH CONTRAST [CT] Stat Exams 06/21/20 19:22 Taken CBC W DIFF Stat Lab 06/21/20 18:40 Completed CMP Stat Lab 06/21/20 18:40 Completed D-DIMER QUANTITATIVE Stat Lab 06/21/20 18:40 Completed Manual Differential NC Stat Lab 06/21/20 18:40 Completed NT PRO BNP Stat Lab 06/21/20 18:40 Completed POCT GLUCOSE Stat Lab 06/21/20 18:34 Completed POCT GLUCOSE Stat Lab 06/21/20 20:26 Completed POCT GLUCOSE Stat Lab 06/21/20 21:57 Completed TROPONIN Q3H Lab 06/21/20 18:40 Completed TROPONIN Q3H Lab 06/21/20 21:32 Completed TROPONIN Q3H Lab 06/22/20 00:30 Ordered TROPONIN Q3H Lab 06/22/20 03:30 Ordered TROPONIN Q3H Lab 06/22/20 06:30 Ordered UA W/RFX UR CULTURE Stat Lab 06/21/20 18:32 Completed Medication Summary Discontinued Medications Generic Name Dose Route Start Last Admin Trade Name Freq PRN Reason Stop Dose Admin Aspirin 324 mg 06/21/20 18:26 06/21/20 18:34 Baby Aspirin 81 Mg Chew PO 06/21/20 18:27 324 mg STAT ONE Administration Aspirin Confirm 06/21/20 18:32 Baby Aspirin 81 Mg Chew Administered 06/21/20 18:33 Dose 324 mg .ROUTE .STK-MED ONE Sodium Chloride 1,000 mls @ 499 mls/hr 06/21/20 18:26 06/21/20 18:34 Sodium Chloride 0.9% 1000 Ml IV 06/21/20 20:26 499 mls/hr .Q2H1M STA Administration Sodium Chloride Confirm 06/21/20 18:32 Sodium Chloride 0.9% 1000 Ml Administered 06/21/20 18:33 Dose 1,000 mls @ ud .ROUTE .STK-MED ONE Insulin Human Regular 5 unit 06/21/20 20:27 06/21/20 20:31 Humulin R IV 06/21/20 20:28 5 unit STAT ONE Administration Insulin Human Regular Confirm 06/21/20 20:31 Humulin R Administered 06/21/20 20:32 Dose 5 unit .ROUTE .STK-MED ONE Sodium Polystyrene Sulfonate 30 g 06/21/20 20:28 06/21/20 20:31 Kayexylate 15 Gm/60 Ml PO 06/21/20 20:29 30 g STAT ONE Administration Sodium Polystyrene Sulfonate Confirm 06/21/20 20:31 Kayexylate 15 Gm/60 Ml Administered 06/21/20 20:32 Dose 30 g .ROUTE .STK-MED ONE Lab/Rad Data: Laboratory Result Diagrams 06/21/20 18:40 06/21/20 18:40 Laboratory Results 06/21/20 06/21/20 06/21/20 Range/Units 21:57 21:32 20:26 WBC (4.0-10.5) K/mm3 RBC (4.1-5.6) M/mm3 Hgb (12.5-18.0) gm/dl Hct (42-50) % MCV (78-100) fl MCH (26-32) pg MCHC (32-36) g/dl RDW (11.5-14.0) % Plt Count (150-450) K/mm3 MPV (7.5-11.0) fl Segmented Neutrophils (36.-66.) % Lymphocytes (Manual) (24-44) % Monocytes (Manual) (0.0-12.0) % Platelet Estimate (NORMAL) RBC Morphology D-Dimer (215-500) ng/mL Sodium (137-145) mmol/L Potassium (3.5-5.1) mmol/L Chloride (98-107) mmol/L Carbon Dioxide (22-30) mmol/L Anion Gap (5-15) MEQ/L BUN (9-20) mg/dL Creatinine (0.66-1.25) mg/dL Estimated GFR ML/MIN Glucose (74-106) mg/dL POC Glucometer 190 H 292 H (74 to 106) mg/dL Calcium (8.4-10.2) mg/dL Total Bilirubin (0.2-1.3) mg/dL AST (17-59) U/L ALT (0-50) U/L Alkaline Phosphatase (38-126) U/L Troponin I < 0.012 (0.000-0.034) ng/mL NT-Pro-B Natriuret Pep (0-900) pg/mL Serum Total Protein (6.3-8.2) g/dL Albumin (3.5-5.0) g/dL Urine Color (YELLOW) Urine Appearance (CLEAR) Urine pH (5-6) Ur Specific [place] (1.005-1.025) Urine Protein (Negative) Urine Ketones (NEGATIVE) Urine Blood (0-5) Prashanth/ul Urine Nitrite (NEGATIVE) Urine Bilirubin (NEGATIVE) Urine Urobilinogen (0-1) mg/dL Ur Leukocyte Esterase (NEGATIVE) Urine WBC (Auto) (0-5) /HPF Urine RBC (Auto) (0-2) /HPF U Hyaline Cast (Auto) (0-2) /LPF U Epithel Cells (Auto) (FEW) /HPF Urine Bacteria (Auto) (NEGATIVE) /HPF Urine Mucus (Auto) (NEGATIVE) /HPF Urine Culture Reflexed (NO) Urine Glucose (NEGATIVE) mg/dL 06/21/20 06/21/20 06/21/20 Range/Units 18:40 18:40 18:40 WBC (4.0-10.5) K/mm3 RBC (4.1-5.6) M/mm3 Hgb (12.5-18.0) gm/dl Hct (42-50) % MCV (78-100) fl MCH (26-32) pg MCHC (32-36) g/dl RDW (11.5-14.0) % Plt Count (150-450) K/mm3 MPV (7.5-11.0) fl Segmented Neutrophils (36.-66.) % Lymphocytes (Manual) (24-44) % Monocytes (Manual) (0.0-12.0) % Platelet Estimate (NORMAL) RBC Morphology D-Dimer 2208 H* (215-500) ng/mL Sodium 134 L (137-145) mmol/L Potassium 5.8 H (3.5-5.1) mmol/L Chloride 100 (98-107) mmol/L Carbon Dioxide 21 L (22-30) mmol/L Anion Gap 18.9 H (5-15) MEQ/L BUN 17 (9-20) mg/dL Creatinine 0.97 (0.66-1.25) mg/dL Estimated GFR > 60.0 ML/MIN Glucose 362 H (74-106) mg/dL POC Glucometer (74 to 106) mg/dL Calcium 9.9 (8.4-10.2) mg/dL Total Bilirubin 0.60 (0.2-1.3) mg/dL AST 22 (17-59) U/L ALT 18 (0-50) U/L Alkaline Phosphatase 152 H (38-126) U/L Troponin I < 0.012 (0.000-0.034) ng/mL NT-Pro-B Natriuret Pep 169 (0-900) pg/mL Serum Total Protein 7.4 (6.3-8.2) g/dL Albumin 3.9 (3.5-5.0) g/dL Urine Color (YELLOW) Urine Appearance (CLEAR) Urine pH (5-6) Ur Specific [place] (1.005-1.025) Urine Protein (Negative) Urine Ketones (NEGATIVE) Urine Blood (0-5) Prashanth/ul Urine Nitrite (NEGATIVE) Urine Bilirubin (NEGATIVE) Urine Urobilinogen (0-1) mg/dL Ur Leukocyte Esterase (NEGATIVE) Urine WBC (Auto) (0-5) /HPF Urine RBC (Auto) (0-2) /HPF U Hyaline Cast (Auto) (0-2) /LPF U Epithel Cells (Auto) (FEW) /HPF Urine Bacteria (Auto) (NEGATIVE) /HPF Urine Mucus (Auto) (NEGATIVE) /HPF Urine Culture Reflexed (NO) Urine Glucose (NEGATIVE) mg/dL 06/21/20 06/21/20 06/21/20 Range/Units 18:40 18:34 18:32 WBC 10.7 H (4.0-10.5) K/mm3 RBC 4.53 (4.1-5.6) M/mm3 Hgb 11.9 L (12.5-18.0) gm/dl Hct 38.7 L (42-50) % MCV 85.4 (78-100) fl MCH 26.3 (26-32) pg MCHC 30.7 L (32-36) g/dl RDW 13.5 (11.5-14.0) % Plt Count 362 (150-450) K/mm3 MPV 11.6 H (7.5-11.0) fl Segmented Neutrophils 90 H (36.-66.) % Lymphocytes (Manual) 9 L (24-44) % Monocytes (Manual) 1 (0.0-12.0) % Platelet Estimate NORMAL (NORMAL) RBC Morphology NORMAL D-Dimer (215-500) ng/mL Sodium (137-145) mmol/L Potassium (3.5-5.1) mmol/L Chloride (98-107) mmol/L Carbon Dioxide (22-30) mmol/L Anion Gap (5-15) MEQ/L BUN (9-20) mg/dL Creatinine (0.66-1.25) mg/dL Estimated GFR ML/MIN Glucose (74-106) mg/dL POC Glucometer 313 H (74 to 106) mg/dL Calcium (8.4-10.2) mg/dL Total Bilirubin (0.2-1.3) mg/dL AST (17-59) U/L ALT (0-50) U/L Alkaline Phosphatase (38-126) U/L Troponin I (0.000-0.034) ng/mL NT-Pro-B Natriuret Pep (0-900) pg/mL Serum Total Protein (6.3-8.2) g/dL Albumin (3.5-5.0) g/dL Urine Color YELLOW (YELLOW) Urine Appearance CLEAR (CLEAR) Urine pH 5.0 (5-6) Ur Specific [place] 1.024 (1.005-1.025) Urine Protein 30 (Negative) Urine Ketones TRACE (NEGATIVE) Urine Blood NEGATIVE (0-5) Prashanth/ul Urine Nitrite NEGATIVE (NEGATIVE) Urine Bilirubin NEGATIVE (NEGATIVE) Urine Urobilinogen NEGATIVE (0-1) mg/dL Ur Leukocyte Esterase NEGATIVE (NEGATIVE) Urine WBC (Auto) 0-2 (0-5) /HPF Urine RBC (Auto) 0-2 (0-2) /HPF U Hyaline Cast (Auto) 3-5 (0-2) /LPF U Epithel Cells (Auto) NONE (FEW) /HPF Urine Bacteria (Auto) NONE SEEN (NEGATIVE) /HPF Urine Mucus (Auto) SLIGHT (NEGATIVE) /HPF Urine Culture Reflexed NO (NO) Urine Glucose >=500 (NEGATIVE) mg/dL - Progress Progress: improved, re-examined Progress Note: 06/21/20 22:08 70 years old is evaluated for shortness of breath with some exertion followed by lightheadedness and palpitation and generalized weakness. Patient symptoms completely resolved on presentation in the ER. He was anxious, patient is counseled. EKG did not show any ST elevations. Negative orthostatics. Has negative troponins x2. Has elevated D-dimer and CTA is negative for any acute cardiopulmonary findings. Patient has hyperglycemia with mildly elevated anion gap and borderline bicarb with no ketones suggesting DKA. Is given insulin and his blood sugar is improved. Patient also has hyperkalemia 5.8 but normal T wave elevations are any arrhythmias. I have given him Kayexalate in here and will give 3-day course of 20 mg Lasix and recommended recheck in 1 to 2 days. Patient symptoms could be secondary to anxiety or needs further evaluation by cardiology. Offered observation admission but patient wants to go home as he is back to his baseline. Discussed signs symptoms of worsening needing return to ER which he seems understanding. Discussed outpatient follow-up with cardiology and monitoring of blood sugar blood pressure. 06/21/20 22:11 Counseled pt/family regarding: lab results, diagnosis, need for follow-up, rad results - Departure Departure Disposition: Home Clinical Impression: Lightheadedness, Hyperkalemia, Anxiety Uncontrolled diabetes mellitus Qualifiers: Diabetes mellitus type: type 2 Glycemic state: with hyperglycemia Qualified Code(s): E11.65 - Type 2 diabetes mellitus with hyperglycemia Condition: Stable Critical Care Time: No Referrals: ASHLEY BISHOP MD [Primary Care Provider] - (1-2 days for reevaluation.) BECKY FARRELL [ACTIVE STAFF] - (Call for appointment in 1 to 2 days) Instructions: Dizziness, Nonvertigo, (DC) Additional Instructions: Keep yourself well-hydrated, drink plenty of fluids. Follow-up with primary care physician for reevaluation in 1 to 2 days and also for recheck of potassium. Return to ER if again have palpitations/shortness of breath/lightheadedness or if develop chest pain, numbness tingling weakness or blurry vision etc. take 20 mg Lasix daily for next 3 days. Monitor your blood sugar regularly, keep a log and follow-up with PCP for medication adjustment. Follow-up with medical staff specialist for further evaluation of shortness of breath with exertion. Prescriptions: Furosemide 20 mg [Lasix 20 mg] 20 mg PO DAILY 3 Days #3 tablet
[2020-06-21 22:18] VITALS: PULSE 98; O2SAT 97
--- NOTE | 2020-06-22 08:41 | XRAY ---
Indication: Short of breath. Dizziness. Comparison: December 03, 2017. Portable chest less inflated again with minimal bibasilar fibrosis/scarring. No focal infiltrate, consolidation, or large effusion. Heart is not enlarged for AP portable technique. Bony thorax intact again with degenerative changes. Impression: Continued nonacute chest with chronic features.
--- NOTE | 2020-06-22 08:43 | XRAY ---
Indication: Short of breath, dizziness, lightheaded, and sweating. Elevated d-dimer. Multiple contiguous images obtained through the chest using 80 cc Isovue 370 contrast and PE protocol. Comparison: July 13, 2014. There is good opacification of the pulmonary arteries. Minimal respiration artifact limits evaluation of the more distal lobar and segmental branches. No central pulmonary embolus. Heart is again borderline enlarged. Aorta is normal in course and caliber again with minimal calcifications. No pathologic mediastinal/hilar lymphadenopathy. Lungs inflated again with diffuse scattered bilateral fibrosis/scarring greatest near the lung bases. Stable 4 mm right middle lobe noncalcified nodule adjacent to the minor fissure favored to be benign given stability over the years. No new pulmonary mass/nodule, infiltrate, or effusion. Bony thorax intact again with flowing osteophytes throughout the spine and right shoulder degenerative arthropathy. Limited upper abdomen again demonstrates cholecystectomy clips. Impression: 1. Minimal respiration artifact. No central pulmonary embolus. 2. Stable scattered fibrosis/scarring, benign right middle lobe noncalcified micronodule, and chronic bony findings. 3. Remaining CT chest with contrast exam is negative.
== END 2020-06-21 22:19 | disposition home or self-care (01) ==
LOC: ED 17:52
DX: R06.02 Shortness of breath (principal); R53.1 Weakness; F41.9 Anxiety disorder, unspecified; R42 Dizziness and giddiness; E87.5 Hyperkalemia; R00.2 Palpitations; E11.65 Type 2 diabetes mellitus with hyperglycemia; I10 Essential (primary) hypertension
CPT/HCPCS: 36000; 36415; 71045; 71260; 80053; 81001; 82947; 83880; 84484; 85025; 85379; 93005; 93041; 96360; 96361; 96374; 99285; J1815; A9270-GY

== ENCOUNTER 2020-06-26 00:08 | Emergency (ER) | payer MEDICARE, OTHER ==
--- NOTE | 2020-06-26 01:13 | ERPHSYRPT ---
- History of Present Illness Time Seen by Provider: 06/26/20 01:10 Source: patient Exam Limitations: no limitations Patient Subjective Stated Complaint: pt c/o dizziness, light headed, nauseaous, anxious Triage Nursing Assessment: pt c/o dizziness, light headedness, nausea, anxious, weak. Pt ambulated into ER without difficulty. Pt states, "the dizziness is gone when I lay down but it reappears when I get up and walk around". Lungs clear, heart tones reg, abd soft with active bs x4 quad, nontender. Pt was just in Er a couple days ago for the same thing. Pt has appt with Dr. Chamberlain in am at 0915. Physician History: pt had recurrence of light headed ness again tonight. no trauma. no chest pain or shortness of breath no N/V, no abd pain. Timing/Duration: today Severity: mild Modifying Factors: Improves With: other (standing) Associated Symptoms: denies symptoms Allergies/Adverse Reactions: diazepam [From Valium] Allergy (Mild, Verified 06/26/20 00:24) HYPERATIVITY Home Medications: Glimepiride [Amaryl] 1 mg PO DAILY 02/25/17 [History] Oxycodone HCl/Acetaminophen [Percocet 7.5-325 mg Tablet] 1 each PO UD 02/25/17 [History] Hx Tetanus, Diphtheria Vaccination/Date Given: No Hx Influenza Vaccination/Date Given: No Hx Pneumococcal Vaccination/Date Given: Yes Immunizations Up to Date: No Travel Risk - International Travel Have you traveled outside of the country in past 3 weeks: No - Coronavirus Screening Are you exhibiting any of the following symptoms?: No Close contact with a COVID-19 positive Pt in past 14-21 Days: No - Review of Systems Constitutional: No Fever, No Chills Eyes: No Symptoms Ears, Nose, & Throat: No Symptoms Respiratory: No Cough, No Dyspnea Cardiac: No Chest Pain, No Edema, No Syncope Abdominal/Gastrointestinal: No Abdominal Pain, No Nausea, No Vomiting, No Diarrhea Genitourinary Symptoms: No Dysuria Musculoskeletal: No Back Pain, No Neck Pain Skin: No Rash Neurological: Dizziness, No Focal Weakness, No Sensory Changes Psychological: No Symptoms Endocrine: No Symptoms All Other Systems: Reviewed and Negative - Past Medical History Pertinent Past Medical History: Yes Cardiac History: Arrhythmia, Hypertension Respiratory History: Pneumonia Endocrine Medical History: Diabetes Type II Musculoskeletal History: Rheumatoid Arthritis Psycho-Social History: Anxiety, Panic Disorder - Past Surgical History Past Surgical History: Yes Gastrointestinal: Cholecystectomy Genitourinary: Kidney Surgery - Social History Smoking Status: Never smoker Exposure to second hand smoke: No Drug Use: none Patient Lives Alone: Yes - Nursing Vital Signs Nursing Vital Signs: Initial Vital Signs Temperature 97.6 F 06/26/20 00:09 Pulse Rate 74 06/26/20 00:09 Respiratory Rate 22 06/26/20 00:09 Blood Pressure 149/94 06/26/20 00:09 O2 Sat by Pulse Oximetry 100 06/26/20 00:09 Pain Scale Pain Intensity 0 - Physical Exam General Appearance: no apparent distress, alert Eye Exam: PERRL/EOMI, eyes nml inspection Ears, Nose, Throat Exam: normal ENT inspection, TMs normal, pharynx normal, moist mucous membranes Neck Exam: normal inspection, non-tender, supple, full range of motion Respiratory Exam: normal breath sounds, lungs clear, No respiratory distress Cardiovascular Exam: regular rate/rhythm, normal heart sounds, normal peripheral pulses Gastrointestinal/Abdomen Exam: soft, normal bowel sounds, No tenderness, No mass Back Exam: normal inspection, normal range of motion, No CVA tenderness, No vertebral tenderness Extremity Exam: normal inspection, normal range of motion, pelvis stable Neurologic Exam: alert, oriented x 3, cooperative, normal mood/affect, nml cerebellar function, nml station & gait, sensation nml, No motor deficits Skin Exam: normal color, warm, dry, No rash Lymphatic Exam: No adenopathy SpO2 Interpretation: normal SpO2: 100 O2 Delivery: Room Air - Course Nursing assessment & vital signs reviewed: Yes EKG Interpreted by Me: Sinus Rhythm, Non-specific ST Changes, Other (LVH) - CT Exams Head CT Interpretation: Tele-radiologist Report, No/Intracranial Hemorrhag Soft Tissue Neck CT Interpretation: Tele-radiologist Report, Other (no reported lesions) Ordered Tests: Active Orders 24 hr Category Date Time Status EKG-ER Only STAT Care 06/26/20 01:14 Active IV Insertion STAT Care 06/26/20 01:14 Active NPO (ED) STAT Care 06/26/20 02:40 Active HEAD WITHOUT CONTRAST [CT] Stat Exams 06/26/20 02:40 Taken NECK WITH CONTRAST [CT] Stat Exams 06/26/20 02:38 Taken CBC W DIFF Stat Lab 06/26/20 01:50 Completed CMP Stat Lab 06/26/20 01:50 Completed Lactic Acid Stat Lab 06/26/20 01:55 Completed Lactic Acid Stat Lab 06/26/20 04:03 Received POCT GLUCOSE Stat Lab 06/26/20 00:40 Received POCT GLUCOSE Stat Lab 06/26/20 00:41 Completed T4 (Thyroxine) Stat Lab 06/26/20 01:30 Completed TROPONIN Q3H Lab 06/26/20 01:50 Completed TROPONIN Q3H Lab 06/26/20 03:55 Completed TROPONIN Q3H Lab 06/26/20 07:15 Ordered TROPONIN Q3H Lab 06/26/20 10:15 Ordered TROPONIN Q3H Lab 06/26/20 13:15 Ordered TSH, 3RD Generation Stat Lab 06/26/20 01:30 Completed UA W/RFX UR CULTURE Stat Lab 06/26/20 01:32 Completed Holter Monitor ONCE RT 06/26/20 05:02 Active Medication Summary Discontinued Medications Generic Name Dose Route Start Last Admin Trade Name Freq PRN Reason Stop Dose Admin Alprazolam 0.5 mg 06/26/20 02:44 06/26/20 02:48 Xanax 0.5 Mg PO 06/26/20 02:45 0.5 mg STAT ONE Administration Alprazolam Confirm 06/26/20 02:47 Xanax 0.5 Mg Administered 06/26/20 02:48 Dose 0.5 mg .ROUTE .STK-MED ONE Sodium Chloride 1,000 mls @ 999 mls/hr 06/26/20 01:14 06/26/20 01:25 Sodium Chloride 0.9% 1000 Ml IV 06/26/20 02:14 999 mls/hr .Q1H1M STA Administration Sodium Chloride Confirm 06/26/20 01:23 Sodium Chloride 0.9% 1000 Ml Administered 06/26/20 01:24 Dose 1,000 mls @ ud .ROUTE .STK-MED ONE Lab/Rad Data: Laboratory Result Diagrams 06/26/20 01:50 06/26/20 01:50 Laboratory Results 06/26/20 06/26/20 06/26/20 Range/Units 03:55 03:33 01:55 WBC (4.0-10.5) K/mm3 RBC (4.1-5.6) M/mm3 Hgb (12.5-18.0) gm/dl Hct (42-50) % MCV (78-100) fl MCH (26-32) pg MCHC (32-36) g/dl RDW (11.5-14.0) % Plt Count (150-450) K/mm3 MPV (7.5-11.0) fl Gran % (36.0-66.0) % Eos # (Auto) (0-0.5) Absolute Lymphs (auto) (1.0-4.6) Absolute Monos (auto) (0.0-1.3) Lymphocytes % (24.0-44.0) % Monocytes % (0.0-12.0) % Eosinophils % (0.00-5.0) % Basophils % (0.0-0.4) % Absolute Granulocytes (1.4-6.9) Basophils # (0-0.4) Sodium (137-145) mmol/L Potassium (3.5-5.1) mmol/L Chloride (98-107) mmol/L Carbon Dioxide (22-30) mmol/L Anion Gap (5-15) MEQ/L BUN (9-20) mg/dL Creatinine (0.66-1.25) mg/dL Estimated GFR ML/MIN Glucose (74-106) mg/dL POC Glucometer (74 to 106) mg/dL Lactic Acid 1.9 (0.4-2.0) Calcium (8.4-10.2) mg/dL Total Bilirubin (0.2-1.3) mg/dL AST (17-59) U/L ALT (0-50) U/L Alkaline Phosphatase (38-126) U/L Troponin I < 0.012 (0.000-0.034) ng/mL Serum Total Protein (6.3-8.2) g/dL Albumin (3.5-5.0) g/dL Thyroxine (T4) (5.53-10.96) ug/dL TSH 3rd Generation (0.47-4.68) mIU/L Urine Color (YELLOW) Urine Appearance (CLEAR) Urine pH (5-6) Ur Specific [place] (1.005-1.025) Urine Protein (Negative) Urine Ketones (NEGATIVE) Urine Blood (0-5) Prashanth/ul Urine Nitrite (NEGATIVE) Urine Bilirubin (NEGATIVE) Urine Urobilinogen (0-1) mg/dL Ur Leukocyte Esterase (NEGATIVE) Urine WBC (Auto) (0-5) /HPF Urine RBC (Auto) (0-2) /HPF U Epithel Cells (Auto) (FEW) /HPF Urine Bacteria (Auto) (NEGATIVE) /HPF Urine Mucus (Auto) (NEGATIVE) /HPF Urine Culture Reflexed (NO) Urine Glucose (NEGATIVE) mg/dL Influenza Type A Ag NEGATIVE (NEGATIVE) Influenza Type B Ag NEGATIVE (NEGATIVE) RSV (PCR) NEGATIVE (Negative) SARS-CoV-2 (PCR) NEGATIVE (NEGATIVE) 06/26/20 06/26/20 06/26/20 Range/Units 01:50 01:50 01:50 WBC 10.7 H (4.0-10.5) K/mm3 RBC 4.58 (4.1-5.6) M/mm3 Hgb 11.9 L (12.5-18.0) gm/dl Hct 38.8 L (42-50) % MCV 84.7 (78-100) fl MCH 26.0 (26-32) pg MCHC 30.7 L (32-36) g/dl RDW 13.8 (11.5-14.0) % Plt Count 281 (150-450) K/mm3 MPV 10.6 (7.5-11.0) fl Gran % 74.0 H (36.0-66.0) % Eos # (Auto) 0.17 (0-0.5) Absolute Lymphs (auto) 1.57 (1.0-4.6) Absolute Monos (auto) 0.98 (0.0-1.3) Lymphocytes % 14.7 L (24.0-44.0) % Monocytes % 9.2 (0.0-12.0) % Eosinophils % 1.6 (0.00-5.0) % Basophils % 0.5 (0.0-0.4) % Absolute Granulocytes 7.90 H (1.4-6.9) Basophils # 0.05 (0-0.4) Sodium 135 L (137-145) mmol/L Potassium 4.0 (3.5-5.1) mmol/L Chloride 100 (98-107) mmol/L Carbon Dioxide 28 (22-30) mmol/L Anion Gap 11.3 (5-15) MEQ/L BUN 14 (9-20) mg/dL Creatinine 0.96 (0.66-1.25) mg/dL Estimated GFR > 60.0 ML/MIN Glucose 156 H (74-106) mg/dL POC Glucometer (74 to 106) mg/dL Lactic Acid (0.4-2.0) Calcium 9.4 (8.4-10.2) mg/dL Total Bilirubin 0.80 (0.2-1.3) mg/dL AST 85 H (17-59) U/L ALT 34 (0-50) U/L Alkaline Phosphatase 112 (38-126) U/L Troponin I < 0.012 (0.000-0.034) ng/mL Serum Total Protein 7.2 (6.3-8.2) g/dL Albumin 3.8 (3.5-5.0) g/dL Thyroxine (T4) (5.53-10.96) ug/dL TSH 3rd Generation (0.47-4.68) mIU/L Urine Color (YELLOW) Urine Appearance (CLEAR) Urine pH (5-6) Ur Specific [place] (1.005-1.025) Urine Protein (Negative) Urine Ketones (NEGATIVE) Urine Blood (0-5) Prashanth/ul Urine Nitrite (NEGATIVE) Urine Bilirubin (NEGATIVE) Urine Urobilinogen (0-1) mg/dL Ur Leukocyte Esterase (NEGATIVE) Urine WBC (Auto) (0-5) /HPF Urine RBC (Auto) (0-2) /HPF U Epithel Cells (Auto) (FEW) /HPF Urine Bacteria (Auto) (NEGATIVE) /HPF Urine Mucus (Auto) (NEGATIVE) /HPF Urine Culture Reflexed (NO) Urine Glucose (NEGATIVE) mg/dL Influenza Type A Ag (NEGATIVE) Influenza Type B Ag (NEGATIVE) RSV (PCR) (Negative) SARS-CoV-2 (PCR) (NEGATIVE) 06/26/20 06/26/20 06/26/20 Range/Units 01:32 01:30 00:41 WBC (4.0-10.5) K/mm3 RBC (4.1-5.6) M/mm3 Hgb (12.5-18.0) gm/dl Hct (42-50) % MCV (78-100) fl MCH (26-32) pg MCHC (32-36) g/dl RDW (11.5-14.0) % Plt Count (150-450) K/mm3 MPV (7.5-11.0) fl Gran % (36.0-66.0) % Eos # (Auto) (0-0.5) Absolute Lymphs (auto) (1.0-4.6) Absolute Monos (auto) (0.0-1.3) Lymphocytes % (24.0-44.0) % Monocytes % (0.0-12.0) % Eosinophils % (0.00-5.0) % Basophils % (0.0-0.4) % Absolute Granulocytes (1.4-6.9) Basophils # (0-0.4) Sodium (137-145) mmol/L Potassium (3.5-5.1) mmol/L Chloride (98-107) mmol/L Carbon Dioxide (22-30) mmol/L Anion Gap (5-15) MEQ/L BUN (9-20) mg/dL Creatinine (0.66-1.25) mg/dL Estimated GFR ML/MIN Glucose (74-106) mg/dL POC Glucometer 136 H (74 to 106) mg/dL Lactic Acid (0.4-2.0) Calcium (8.4-10.2) mg/dL Total Bilirubin (0.2-1.3) mg/dL AST (17-59) U/L ALT (0-50) U/L Alkaline Phosphatase (38-126) U/L Troponin I (0.000-0.034) ng/mL Serum Total Protein (6.3-8.2) g/dL Albumin (3.5-5.0) g/dL Thyroxine (T4) 11.8 H (5.53-10.96) ug/dL TSH 3rd Generation 1.570 (0.47-4.68) mIU/L Urine Color YELLOW (YELLOW) Urine Appearance CLEAR (CLEAR) Urine pH 6.0 (5-6) Ur Specific [place] 1.012 (1.005-1.025) Urine Protein NEGATIVE (Negative) Urine Ketones NEGATIVE (NEGATIVE) Urine Blood NEGATIVE (0-5) Prashanth/ul Urine Nitrite NEGATIVE (NEGATIVE) Urine Bilirubin NEGATIVE (NEGATIVE) Urine Urobilinogen NEGATIVE (0-1) mg/dL Ur Leukocyte Esterase NEGATIVE (NEGATIVE) Urine WBC (Auto) NONE (0-5) /HPF Urine RBC (Auto) NONE (0-2) /HPF U Epithel Cells (Auto) NONE (FEW) /HPF Urine Bacteria (Auto) NONE (NEGATIVE) /HPF Urine Mucus (Auto) SLIGHT (NEGATIVE) /HPF Urine Culture Reflexed NO (NO) Urine Glucose NEGATIVE (NEGATIVE) mg/dL Influenza Type A Ag (NEGATIVE) Influenza Type B Ag (NEGATIVE) RSV (PCR) (Negative) SARS-CoV-2 (PCR) (NEGATIVE) - Progress Progress: improved, re-examined Progress Note: 06/26/20 04:55 pt symptoms have resolved and not recurred without arrythmia during monitoring. Discussed with pt and Dr. Ma and all agree to have holter placed and ; risk/benefit discussed with pt , including that serious pathology could still be evolving undetected including potentially fatal cardiac conditions and he does prefer outpt workup to further testing in ER or hosp obs and has the capacity to make this choice. 06/26/20 05:08 Counseled pt/family regarding: lab results, diagnosis, need for follow-up, rad results - Departure Departure Disposition: Home Clinical Impression: Lightheadedness, light headedness of unknown etiology Condition: Good Critical Care Time: No Referrals: ASHLEY CHAMBERLAIN MD [Primary Care Provider] - Instructions: Dizziness, Nonvertigo, (DC), Ambulatory Cardiac Monitoring (DC) Additional Instructions: followup with your as planned /this week and have your holter read as well ; return meantime if any further symptoms or concerns. THis followup is important even though testing has been negative so far since pathology of some conditions could still be evolving undetected, and we have not determined the cause of your symptoms.
[2020-06-26] MEDS ORDERED: Sodium Chloride 0.9% 1000 ML 1,000 ML IV STA (01:14)
[2020-06-26] MEDS ORDERED: Sodium Chloride 0.9% 1000 ML 1,000 ML ONE (01:23)
[2020-06-26 01:51] LABS: Appearance CLEAR (CLEAR); Bilirubin NEGATIVE (NEGATIVE); Blood NEGATIVE Ery/ul (0-5); Glucose NEGATIVE (NEGATIVE); Ketones NEGATIVE (NEGATIVE); Leukocyte Esterase NEGATIVE (NEGATIVE); Mucus SLIGHT /HPF (NEGATIVE); Nitrite NEGATIVE (NEGATIVE); Protein,Urine Dip NEGATIVE (Negative); Specific Gravity 1.012 (1.005-1.025); Urobilinogen NEGATIVE mg/dL (0-1)
[2020-06-26 01:54] LABS: BASOPHIL % 0.5 % (0.0-0.4); Basophil (Absolute #) 0.05 (0-0.4); Eosinophil % 1.6 % (0.00-5.0); Eosinophil (Absolute #) 0.17 (0-0.5); Hematocrit 38.8 % (42-50); Hemoglobin 11.9 gm/dl (12.5-18.0); Lymphocyte (Absolute #) 1.57 (1.0-4.6); Lymphocytes % 14.7 % (24.0-44.0); Mean Cell Volume 84.7 fl (78-100); Mean Corpuscular Hgb Concent. 30.7 g/dl (32-36); Mean Platelet Volume 10.6 fl (7.5-11.0); Monocyte (Absolute #) 0.98 (0.0-1.3); Monocytes % 9.2 % (0.0-12.0); Platelet Count 281 K/mm3 (150-450); Red Blood Count 4.58 M/mm3 (4.1-5.6); Red Cell Distribution Width 13.8 % (11.5-14.0); White Blood Count 10.7 K/mm3 (4.0-10.5)
[2020-06-26 02:06] LABS: ALBUMIN 3.8 g/dL (3.5-5.0); ALKALINE PHOSPHATASE 112 U/L (38-126); ANION GAP 11.3 MEQ/L (5-15); BLOOD UREA NITROGEN 14 mg/dL (9-20); CHLORIDE 100 mmol/L (98-107); Calcium 9.4 mg/dL (8.4-10.2); Carbon Dioxide 28 mmol/L (22-30); Creatinine 1 0.96 mg/dL (0.66-1.25); EST GLOMERULAR FILTRATION RATE > 60.0 ML/MIN; Glucose 156 mg/dL (74-106); SGOT/AST 85 U/L (17-59); SGPT/ALT 34 U/L (0-50); SODIUM 135 mmol/L (137-145); Total Protein 7.2 g/dL (6.3-8.2)
[2020-06-26] MEDS ORDERED: xanAX 0.5 MG PO ONE (02:44)
[2020-06-26] MEDS ORDERED: xanAX 0.5 MG ONE (02:47)
[2020-06-26 03:36] LABS: T4 (Thyroxine) 11.8 ug/dL (5.53-10.96); TSH, 3RD Generation 1.57 mIU/L (0.47-4.68)
[2020-06-26 04:15] LABS: INFLUENZA A NEGATIVE (NEGATIVE); INFLUENZA B NEGATIVE (NEGATIVE); RESPIRATORY SYNCTIAL VIRUS NEGATIVE (Negative)
[2020-06-26 05:03] VITALS: BP 112/64; PULSE 74
[2020-06-26 05:15] VITALS: O2SAT 100
--- NOTE | 2020-06-26 09:33 | XRAY ---
Indication: Dizziness. Multiple contiguous axial images obtained through the head without contrast. Comparison: None Age-appropriate global atrophy. No acute intracranial hemorrhage, abnormal extra-axial fluid collection, or mass effect. Fourth ventricle is midline without hydrocephalus. Doyle-white matter differentiation preserved. Bony calvarium intact. Visualized paranasal sinuses and mastoid air cells are clear. Impression: Negative CT head without contrast exam. Comment: Preliminary interpretation was made by [facility]. No critical discrepancy.
--- NOTE | 2020-06-26 09:36 | XRAY ---
Indication: Dizziness. Multiple contiguous axial images obtained through the neck using 60 cc Isovue 370 contrast. Sagittal and coronal reformatted images obtained. Comparison: None Multiple bilateral dental amalgams produces beam artifact limiting these levels. Parotid and submandibular glands are bilaterally symmetric. Scattered subcentimeter cervical/submandibular lymph nodes bilaterally. No pathologic adenopathy. Major arteries and veins are normal in course and caliber. Thyroid gland enhances with minimal heterogeneity but no focal solid/cystic mass. Supra and infraglottic airway widely patent. Normal epiglottis. Cervical spine intact with mild multilevel degenerative spondylosis. Lung apices are clear. Impression: 1. Mild heterogeneous thyroid gland and cervical degenerative spondylosis. 2. Remaining CT neck with contrast exam is negative. Comment: Preliminary interpretation was made by [facility]. No critical discrepancy.
== END 2020-06-26 05:35 | disposition home or self-care (01) ==
LOC: ED 00:08
DX: R42 Dizziness and giddiness (principal); R11.0 Nausea; R53.1 Weakness; I10 Essential (primary) hypertension; E11.9 Type 2 diabetes mellitus without complications; I49.9 Cardiac arrhythmia, unspecified; Z79.899 Other long term (current) drug therapy
CPT/HCPCS: 0241U; 36000; 36415; 70450; 70491; 80053; 81001; 82947; 83605; 84436; 84443; 84484; 85025; 93005; 93225; 96360; 99284; A9270-GY

== ENCOUNTER 2020-07-19 03:58 | Emergency (ER) | payer MEDICARE, OTHER ==
[2020-07-19 04:14] VITALS: O2SAT 100
--- NOTE | 2020-07-19 04:38 | ERPHSYRPT ---
- History of Present Illness Source: patient Patient Subjective Stated Complaint: pt states he woke up short of breath. sta makenna he has been having some dizziness and feeling light headed. denies chest pain Triage Nursing Assessment: pt alert and oriented, answers questions approp. pt ambulatory with steady gait noted. skin warm and dry. pt short of breath on arrival. lungs cta bilat. pt states he woke up feeling short of breath, states he got more dizzy and light headed Physician History: 70 yo wm w dyspnea and lethargy x30-45 minutes. Pt denies CP/N/V/D/fever/focal weakness/HAWLEY/cough/coryza/dysuria/hematuria. Pt states that he has a h/o anxiety which he is most likely having at present. Symptoms resolving after arrival to ER. Timing/Duration: other (30-45 minutes) Activities at Onset: sleep Severity of Dyspnea-Max: moderate Severity of Dyspnea-Current: mild Possible Cause: occasional episodes Modifying Factors: Improves With: other (Waking up at night) Associated Symptoms: insomnia, weakness, No anxiety, No cough, No chest pain/discomfort, No edema, No fever, No loss of appetite, No lightheadedness, No wheezing, No ankle swelling, No chills, No hemoptysis, No calf pain, No dizzi ness, No heaviness, No heart racing, No lightheadedness, No leg swelling, No muscle spasms feet, No muscle spasms hands, No painful breathing, No productive cough, No sweating, No tightness, No tingling face, No tingling hands Allergies/Adverse Reactions: diazepam [From Valium] Allergy (Mild, Verified 07/19/20 04:14) HYPERATIVITY Home Medications: Glimepiride [Amaryl] 1 mg PO DAILY 02/25/17 [History] Oxycodone HCl/Acetaminophen [Percocet 7.5-325 mg Tablet] 1 each PO UD 02/25/17 [History] Leflunomide 10 mg PO DAILY 07/19/20 [History] Hx Tetanus, Diphtheria Vaccination/Date Given: No Hx Influenza Vaccination/Date Given: No Hx Pneumococcal Vaccination/Date Given: Yes Immunizations Up to Date: No Travel Risk - International Travel Have you traveled outside of the country in past 3 weeks: No - Coronavirus Screening Are you exhibiting any of the following symptoms?: No Close contact with a COVID-19 positive Pt in past 14-21 Days: No - Review of Systems Constitutional: Fatigue Eyes: No Symptoms Ears, Nose, & Throat: No Symptoms Respiratory: No Symptoms, Dyspnea Cardiac: No Symptoms Abdominal/Gastrointestinal: No Symptoms Genitourinary Symptoms: No Symptoms Musculoskeletal: No Symptoms, Arthralgias Skin: No Symptoms Neurological: No Symptoms Psychological: No Symptoms, Anxiety Endocrine: No Symptoms, Excessive Sweating Hematologic/Lymphatic: No Symptoms Immunological/Allergic: No Symptoms - Past Medical History Pertinent Past Medical History: Yes Cardiac History: Arrhythmia, Hypertension Respiratory History: Pneumonia Endocrine Medical History: Diabetes Type II Musculoskeletal History: Rheumatoid Arthritis Psycho-Social History: Anxiety, Panic Disorder - Past Surgical History Past Surgical History: Yes Gastrointestinal: Cholecystectomy Genitourinary: Kidney Surgery - Social History Smoking Status: Never smoker Exposure to second hand smoke: No Drug Use: none Patient Lives Alone: Yes Significant Family History: no pertinent family hx - Nursing Vital Signs Nursing Vital Signs: Initial Vital Signs Temperature 97.1 F 07/19/20 04:04 Pulse Rate 80 07/19/20 04:04 Respiratory Rate 26 H 07/19/20 04:04 Blood Pressure 141/80 07/19/20 04:04 O2 Sat by Pulse Oximetry 100 07/19/20 04:04 Pain Scale Pain Intensity 0 - Physical Exam General Appearance: no apparent distress, anxiety Eye Exam: PERRL/EOMI (Pupils very smaLL b) Ears, Nose, Throat Exam: hearing grossly normal, normal ENT inspection, normal pharynx Neck Exam: normal inspection, non-tender, supple, full range of motion, No Br udzinski, No Kernig's, No meningismus, No carotid bruit Respiratory Exam: airway intact, crackles/rales (Faint rales at bases B), No respiratory distress Cardiovascular/Chest Exam: normal heart sounds, regular rate/rhythm, normal peripheral pulses, No murmur, No edema Abdominal/Gastrointestinal Exam: soft, normal bowel sounds Extremity Exam: non-tender, normal range of motion, normal inspection, normal capillary refill, no calf tenderness Neurologic Exam: alert, oriented x 3, cooperative, pattern room attendant II-XII nml as tested, normal mood/affect, nml station & gait, sensation nml, No motor deficits, No sensory deficit Skin Exam: normal color, warm, dry, No rash Lymphatic Exam: No adenopathy SpO2 Interpretation: normal SpO2: 100 O2 Delivery: Room Air - Course Nursing assessment & vital signs reviewed: Yes EKG Interpreted by Me: RATE (NSR/Qwave 3-AVF/Poor R wave progression/Normal QT- QTc/ST-T wave changes) Ordered Tests: Active Orders 24 hr Category Date Time Status EKG-ER Only STAT Care 07/19/20 04:31 Active CBC W DIFF Stat Lab 07/19/20 04:44 Completed CMP Stat Lab 07/19/20 04:44 Completed ETHYL ALCOHOL Stat Lab 07/19/20 04:44 Completed PROTIME WITH INR Stat Lab 07/19/20 04:44 Completed PTT Stat Lab 07/19/20 04:44 Completed TROPONIN Q3H Lab 07/19/20 04:44 Received TROPONIN Q3H Lab 07/19/20 07:45 Ordered TROPONIN Q3H Lab 07/19/20 10:45 Ordered TROPONIN Q3H Lab 07/19/20 13:45 Ordered TROPONIN Q3H Lab 07/19/20 16:45 Ordered UA W/RFX UR CULTURE Stat Lab 07/19/20 04:42 Completed Urine Triage Profile Stat Lab 07/19/20 04:42 Completed Lab/Rad Data: Laboratory Result Diagrams 07/19/20 04:44 07/19/20 04:44 Laboratory Results 07/19/20 07/19/20 07/19/20 Range/Units 04:44 04:44 04:44 WBC 10.0 (4.0-10.5) K/mm3 RBC 4.78 (4.1-5.6) M/mm3 Hgb 12.5 (12.5-18.0) gm/dl Hct 40.1 L (42-50) % MCV 83.9 (78-100) fl MCH 26.2 (26-32) pg MCHC 31.2 L (32-36) g/dl RDW 14.1 H (11.5-14.0) % Plt Count 346 (150-450) K/mm3 MPV 12.1 H (7.5-11.0) fl Gran % 81.8 H (36.0-66.0) % Eos # (Auto) 0.02 (0-0.5) Absolute Lymphs (auto) 1.36 (1.0-4.6) Absolute Monos (auto) 0.42 (0.0-1.3) Lymphocytes % 13.6 L (24.0-44.0) % Monocytes % 4.2 (0.0-12.0) % Eosinophils % 0.2 (0.00-5.0) % Basophils % 0.2 (0.0-0.4) % Absolute Granulocytes 8.18 H (1.4-6.9) Basophils # 0.02 (0-0.4) PT 12.5 (8.83-12.87) SECONDS INR 1.11 (0.8-3.0) APTT 32.0 (24.1-36.1) SECONDS Sodium 135 L (137-145) mmol/L Potassium 4.5 (3.5-5.1) mmol/L Chloride 101 (98-107) mmol/L Carbon Dioxide 19 L (22-30) mmol/L Anion Gap 18.5 H (5-15) MEQ/L BUN 17 (9-20) mg/dL Creatinine 0.98 (0.66-1.25) mg/dL Estimated GFR > 60.0 ML/MIN Glucose 336 H (74-106) mg/dL Calcium 9.5 (8.4-10.2) mg/dL Total Bilirubin 0.50 (0.2-1.3) mg/dL AST 19 (17-59) U/L ALT 19 (0-50) U/L Alkaline Phosphatase 160 H (38-126) U/L Serum Total Protein 7.7 (6.3-8.2) g/dL Albumin 4.1 (3.5-5.0) g/dL Urine Color (YELLOW) Urine Appearance (CLEAR) Urine pH (5-6) Ur Specific [place] (1.005-1.025) Urine Protein (Negative) Urine Ketones (NEGATIVE) Urine Blood (0-5) Prashanth/ul Urine Nitrite (NEGATIVE) Urine Bilirubin (NEGATIVE) Urine Urobilinogen (0-1) mg/dL Ur Leukocyte Esterase (NEGATIVE) Urine WBC (Auto) (0-5) /HPF Urine RBC (Auto) (0-2) /HPF U Epithel Cells (Auto) (FEW) /HPF Urine Bacteria (Auto) (NEGATIVE) /HPF Urine Mucus (Auto) (NEGATIVE) /HPF Urine Culture Reflexed (NO) Urine Glucose (NEGATIVE) mg/dL Urine Opiates Level (NEGATIVE) Ur Methadone (NEGATIVE) Urine Barbiturates (NEGATIVE) Ur Phencyclidine (PCP) (NEGATIVE) Urine Amphetamine (NEGATIVE) U Benzodiazepine Level (NEGATIVE) Urine Cocaine (NEGATIVE) Urine Marijuana (THC) (NEGATIVE) Ethyl Alcohol < 10 (0-10) mg/dL 07/19/20 07/19/20 Range/Units 04:42 04:42 WBC (4.0-10.5) K/mm3 RBC (4.1-5.6) M/mm3 Hgb (12.5-18.0) gm/dl Hct (42-50) % MCV (78-100) fl MCH (26-32) pg MCHC (32-36) g/dl RDW (11.5-14.0) % Plt Count (150-450) K/mm3 MPV (7.5-11.0) fl Gran % (36.0-66.0) % Eos # (Auto) (0-0.5) Absolute Lymphs (auto) (1.0-4.6) Absolute Monos (auto) (0.0-1.3) Lymphocytes % (24.0-44.0) % Monocytes % (0.0-12.0) % Eosinophils % (0.00-5.0) % Basophils % (0.0-0.4) % Absolute Granulocytes (1.4-6.9) Basophils # (0-0.4) PT (8.83-12.87) SECONDS INR (0.8-3.0) APTT (24.1-36.1) SECONDS Sodium (137-145) mmol/L Potassium (3.5-5.1) mmol/L Chloride (98-107) mmol/L Carbon Dioxide (22-30) mmol/L Anion Gap (5-15) MEQ/L BUN (9-20) mg/dL Creatinine (0.66-1.25) mg/dL Estimated GFR ML/MIN Glucose (74-106) mg/dL Calcium (8.4-10.2) mg/dL Total Bilirubin (0.2-1.3) mg/dL AST (17-59) U/L ALT (0-50) U/L Alkaline Phosphatase (38-126) U/L Serum Total Protein (6.3-8.2) g/dL Albumin (3.5-5.0) g/dL Urine Color YELLOW (YELLOW) Urine Appearance CLEAR (CLEAR) Urine pH 5.0 (5-6) Ur Specific [place] 1.023 (1.005-1.025) Urine Protein NEGATIVE (Negative) Urine Ketones TRACE (NEGATIVE) Urine Blood NEGATIVE (0-5) Prashanth/ul Urine Nitrite NEGATIVE (NEGATIVE) Urine Bilirubin NEGATIVE (NEGATIVE) Urine Urobilinogen NEGATIVE (0-1) mg/dL Ur Leukocyte Esterase NEGATIVE (NEGATIVE) Urine WBC (Auto) 0-2 (0-5) /HPF Urine RBC (Auto) NONE (0-2) /HPF U Epithel Cells (Auto) RARE (FEW) /HPF Urine Bacteria (Auto) NONE SEEN (NEGATIVE) /HPF Urine Mucus (Auto) SLIGHT (NEGATIVE) /HPF Urine Culture Reflexed NO (NO) Urine Glucose >=500 (NEGATIVE) mg/dL Urine Opiates Level NEGATIVE (NEGATIVE) Ur Methadone NEGATIVE (NEGATIVE) Urine Barbiturates NEGATIVE (NEGATIVE) Ur Phencyclidine (PCP) NEGATIVE (NEGATIVE) Urine Amphetamine NEGATIVE (NEGATIVE) U Benzodiazepine Level NEGATIVE (NEGATIVE) Urine Cocaine NEGATIVE (NEGATIVE) Urine Marijuana (THC) NEGATIVE (NEGATIVE) Ethyl Alcohol (0-10) mg/dL - Progress Progress: improved Counseled pt/family regarding: lab results, diagnosis, need for follow-up - Departure Departure Disposition: Home Clinical Impression: Panic attacks, Hyperglycemia Condition: Stable Critical Care Time: No Referrals: ASHLEY CHAMBERLAIN MD [Primary Care Provider] - Instructions: Shortness of Breath (Dyspnea) (DC), Anxiety, Adult (DC) Additional Instructions: Follow up with Dr. Chamberlain Return to ER for chest pain/shortness of breath/Focal weakness
[2020-07-19 04:56] LABS: Appearance CLEAR (CLEAR); Bacteria NONE SEEN /HPF (NEGATIVE); Bilirubin NEGATIVE (NEGATIVE); Blood NEGATIVE Ery/ul (0-5); Epithelial Cells RARE /HPF (FEW); Glucose >=500 mg/dL (NEGATIVE); Ketones TRACE (NEGATIVE); Leukocyte Esterase NEGATIVE (NEGATIVE); Mucus SLIGHT /HPF (NEGATIVE); Nitrite NEGATIVE (NEGATIVE); Protein,Urine Dip NEGATIVE (Negative); Specific Gravity 1.023 (1.005-1.025); Urobilinogen NEGATIVE mg/dL (0-1); WBC 0-2 /HPF (0-5)
[2020-07-19 04:58] LABS: Absolute Neutrophil Ct (ANC) 8.18 (1.4-6.9); BASOPHIL % 0.2 % (0.0-0.4); Basophil (Absolute #) 0.02 (0-0.4); Eosinophil % 0.2 % (0.00-5.0); Eosinophil (Absolute #) 0.02 (0-0.5); Hematocrit 40.1 % (42-50); Hemoglobin 12.5 gm/dl (12.5-18.0); Lymphocyte (Absolute #) 1.36 (1.0-4.6); Lymphocytes % 13.6 % (24.0-44.0); Mean Cell Volume 83.9 fl (78-100); Mean Corpuscular Hemoglobin 26.2 pg (26-32); Mean Corpuscular Hgb Concent. 31.2 g/dl (32-36); Mean Platelet Volume 12.1 fl (7.5-11.0); Monocyte (Absolute #) 0.42 (0.0-1.3); Monocytes % 4.2 % (0.0-12.0); Neutrophil % 81.8 % (36.0-66.0); Platelet Count 346 K/mm3 (150-450); Red Blood Count 4.78 M/mm3 (4.1-5.6); Red Cell Distribution Width 14.1 % (11.5-14.0)
[2020-07-19 05:00] LABS: INR 1.11 (0.8-3.0); PROTIME 12.5 SECONDS (8.83-12.87)
[2020-07-19 05:05] LABS: ALBUMIN 4.1 g/dL (3.5-5.0); ALKALINE PHOSPHATASE 160 U/L (38-126); ANION GAP 18.5 MEQ/L (5-15); BLOOD UREA NITROGEN 17 mg/dL (9-20); CHLORIDE 101 mmol/L (98-107); Calcium 9.5 mg/dL (8.4-10.2); Carbon Dioxide 19 mmol/L (22-30); Creatinine 1 0.98 mg/dL (0.66-1.25); EST GLOMERULAR FILTRATION RATE > 60.0 ML/MIN; ETHYL ALCOHOL < 10 mg/dL (0-10); Glucose 336 mg/dL (74-106); Potassium 4.5 mmol/L (3.5-5.1); SGOT/AST 19 U/L (17-59); SGPT/ALT 19 U/L (0-50); SODIUM 135 mmol/L (137-145); Total Protein 7.7 g/dL (6.3-8.2)
[2020-07-19 05:07] LABS: Amphetamine,Urine NEGATIVE (NEGATIVE); Barbiturate,Urine NEGATIVE (NEGATIVE); Benzodiazepine,Urine NEGATIVE (NEGATIVE); Cocaine,Urine NEGATIVE (NEGATIVE); Methadone,Urine NEGATIVE (NEGATIVE); Opiate,Urine NEGATIVE (NEGATIVE); PCP,Urine NEGATIVE (NEGATIVE); THC,Urine NEGATIVE (NEGATIVE)
[2020-07-19 05:29] VITALS: BP 146/75; PULSE 67
== END 2020-07-19 05:36 | disposition home or self-care (01) ==
LOC: ED 03:58
DX: F41.0 Panic disorder [episodic paroxysmal anxiety] (principal); E11.65 Type 2 diabetes mellitus with hyperglycemia; Z79.891 Long term (current) use of opiate analgesic; I10 Essential (primary) hypertension
CPT/HCPCS: 36000; 36415; 80053; 80307; 81001; 84484; 85025; 85610; 85730; 93005; 99284; G0480

== ENCOUNTER 2021-12-09 13:29 | Emergency (ER) | payer MEDICARE, OTHER ==
[2021-12-09 13:53] VITALS: O2SAT 99
[2021-12-09 14:24] LABS: Absolute Neutrophil Ct (ANC) 6.05 x10^3/uL (1.4-6.9); Basophil (Absolute #) 0.04 x10^3/uL (0-0.4); Eosinophil % 0.6 % (0.00-5.0); Eosinophil (Absolute #) 0.04 x10^3/uL (0-0.5); Hematocrit 36.1 % (42-50); Hemoglobin 11.3 g/dL (12.5-18.0); Lymphocyte (Absolute #) 0.44 x10^3/uL (1.0-4.6); Lymphocytes % 6.4 % (24.0-44.0); Mean Cell Volume 82.4 fL (78-100); Mean Corpuscular Hemoglobin 25.8 pg (26-32); Mean Corpuscular Hgb Concent. 31.3 g/dL (32-36); Mean Platelet Volume 11.1 fL (7.5-11.0); Monocytes % 4.3 % (0.0-12.0); Neutrophil % 87.7 % (36.0-66.0); Platelet Count 238 x10^3/uL (150-450); Red Blood Count 4.38 x10^6/uL (4.1-5.6); Red Cell Distribution Width 15.7 % (11.5-14.0); White Blood Count 6.9 x10^3/uL (4.0-10.5)
--- NOTE | 2021-12-09 14:27 | ERPHSYRPT ---
- History of Present Illness Time Seen by Provider: 12/09/21 13:35 Source: patient Exam Limitations: no limitations Patient Subjective Stated Complaint: States "just doesn't feel right." Started around 30 minutes prior to coming into the ED while at the grocery store. He is weak and tired. States he ran out of his lisinopril and hasn't taken a dose since . Triage Nursing Assessment: Patient ambulated back to ED without difficulties. He is alert. Skin is moist. No SOB noted. Physician History: 71-year-old male with history of hypertension, diabetes mellitus who has not been taking his antihypertensive for the last 3 days presented in the ER with sudden onset feeling of generalized weakness fatigue tiredness and getting dizzy/lightheaded while he was at the grocery store almost 30 minutes prior to arrival. Patient reports he notices blood pressure was elevated and felt heart beating in his eyeballs making him dizzy occasionally. Denies being wobbly or unsteady on his feet. Denies any chest pain palpitations or shortness of breath. Denies having headache numbness tingling or focal weakness. Reports having similar symptoms almost 5 years ago when his blood pressure was elevated. Patient blood pressure is currently 178 systolic. Patient is very anxious during the whole encounter. Timing/Duration: hour(s) (0.5), sudden, improved Severity: moderate Modifying Factors: Worsens With: movement, other Associated Symptoms: malaise, weakness, No nausea, No vomiting, No shortness of breath, No chest pain, No fever, No headaches, No syncope, No seizure Allergies/Adverse Reactions: diazepam [From Valium] Allergy (Mild, Verified 12/09/21 13:39) HYPERATIVITY Home Medications: Oxycodone HCl/Acetaminophen [Percocet 7.5-325 mg Tablet] 1 each PO UD 02/25/17 [History] Glimepiride 2 mg [Amaryl 2 MG] 1 tab PO DAILY 12/09/21 [History] Lisinopril 10 mg [Zestril 10 MG] 1 tab PO DAILY 12/09/21 [History] Trazodone HCl 50 mg [Desyrel 50 mg] 1 tab PO HS 12/09/21 [History] Zolpidem Tartrate 5 mg [Ambien 5 MG Tablet] 1 tab PO HS 12/09/21 [History] Hx Tetanus, Diphtheria Vaccination/Date Given: Yes Hx Influenza Vaccination/Date Given: No Hx Pneumococcal Vaccination/Date Given: No Immunizations Up to Date: Yes Travel Risk - International Travel Have you traveled outside of the country in past 3 weeks: No - Coronavirus Screening Are you exhibiting any of the following symptoms?: Yes Symptoms: Headaches/Body Aches/Fatigue Close contact with a COVID-19 positive Pt in past 14-21 Days: No - Vaccine Status Have you recieved a Covid-19 vaccination: Yes 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: [employer] - Review of Systems Constitutional: Fatigue, Weakness Eyes: No Symptoms Ears, Nose, & Throat: No Symptoms Respiratory: No Symptoms Cardiac: No Symptoms Abdominal/Gastrointestinal: No Symptoms Genitourinary Symptoms: No Symptoms Musculoskeletal: No Symptoms Skin: No Symptoms Neurological: Dizziness, No Focal Weakness, No Gait Changes, No Headache, No Ir ritability, No Sensory Changes Psychological: Anxiety Endocrine: No Symptoms Hematologic/Lymphatic: No Symptoms Immunological/Allergic: No Symptoms - Past Medical History Pertinent Past Medical History: Yes Cardiac History: Arrhythmia, Hypertension Respiratory History: Pneumonia Endocrine Medical History: Diabetes Type II Musculoskeletal History: Rheumatoid Arthritis GI Medical History: Gallbladder Disease Psycho-Social History: Anxiety, Panic Disorder - Past Surgical History Past Surgical History: Yes Gastrointestinal: Cholecystectomy Genitourinary: Kidney Surgery - Social History Smoking Status: Never smoker Exposure to second hand smoke: No Drug Use: none Patient Lives Alone: Yes Significant Family History: no pertinent family hx - Nursing Vital Signs Nursing Vital Signs: Initial Vital Signs Temperature 98.1 F 12/09/21 13:40 Pulse Rate 85 12/09/21 13:40 Respiratory Rate 23 12/09/21 13:40 Blood Pressure 178/99 12/09/21 13:40 O2 Sat by Pulse Oximetry 99 12/09/21 13:40 Pain Scale Pain Intensity 0 - Physical Exam General Appearance: no apparent distress, alert Eye Exam: PERRL/EOMI Ears, Nose, Throat Exam: normal ENT inspection, TMs normal, pharynx normal, moist mucous membranes Neck Exam: normal inspection, non-tender, supple, full range of motion Respiratory Exam: normal breath sounds, lungs clear Cardiovascular Exam: regular rate/rhythm, normal heart sounds Gastrointestinal/Abdomen Exam: soft, normal bowel sounds, No tenderness Back Exam: normal inspection, normal range of motion Extremity Exam: normal inspection, normal range of motion, pelvis stable Neurologic Exam: alert, oriented x 3, cooperative, event designer II-XII nml as tested, nml cerebellar function, nml station & gait, sensation nml, No normal mood/affect (Anxious), No motor deficits, No motor weakness Skin Exam: normal color SpO2 Interpretation: normal SpO2: 99 O2 Delivery: Room Air - Course EKG Interpreted by Me: RATE (82), Sinus Rhythm, NORMAL AXIS (PACs, LVH), NORMAL INTERVALS, Q-wave (Anterior) Ordered Tests: Active Orders 24 hr Category Date Time Status EKG-ER Only STAT Care 12/09/21 13:57 Active IV Insertion STAT Care 12/09/21 13:57 Active Orthostatic Vital Signs STAT Care 12/09/21 13:57 Active CHEST 1 VIEW (PORTABLE) Stat Exams 12/09/21 13:57 Taken HEAD WITHOUT CONTRAST [CT] Stat Exams 12/09/21 13:58 Taken CBC W DIFF Stat Lab 12/09/21 14:05 Completed CMP Stat Lab 12/09/21 14:05 Completed MAGNESIUM Stat Lab 12/09/21 14:05 Completed POCT GLUCOSE Stat Lab 12/09/21 13:53 Completed TROPONIN Q3H Lab 12/09/21 14:05 Completed TROPONIN Q3H Lab 12/09/21 17:00 Ordered TROPONIN Q3H Lab 12/09/21 20:00 Ordered TROPONIN Q3H Lab 12/09/21 23:00 Ordered TROPONIN Q3H Lab 12/10/21 02:00 Ordered UA W/RFX CULTURE Stat Lab 12/09/21 14:00 Completed Medication Summary Discontinued Medications Generic Name Dose Route Start Last Admin Trade Name Freq PRN Reason Stop Dose Admin Lisinopril 10 mg 12/09/21 16:23 Lisinopril 10 Mg Tablet PO 12/09/21 16:24 STAT STA Lab/Rad Data: Laboratory Result Diagrams 12/09/21 14:05 12/09/21 14:05 Laboratory Results 12/09/21 12/09/21 12/09/21 Range/Units 14:19 14:05 14:05 WBC (4.0-10.5) x10^3/uL RBC (4.1-5.6) x10^6/uL Hgb (12.5-18.0) g/dL Hct (42-50) % MCV (78-100) fL MCH (26-32) pg MCHC (32-36) g/dL RDW (11.5-14.0) % Plt Count (150-450) x10^3/uL MPV (7.5-11.0) fL Gran % (36.0-66.0) % Immature Gran % (Auto) (0.00-0.4) % Nucleat RBC Rel Count (0.00-0.1) % Eos # (Auto) (0-0.5) x10^3/uL Immature Gran # (Auto) (0.00-0.03) x10^3u/L Absolute Lymphs (auto) (1.0-4.6) x10^3/uL Absolute Monos (auto) (0.0-1.3) x10^3/uL Absolute Nucleated RBC (0.00-0.01) x10^3u/L Lymphocytes % (24.0-44.0) % Monocytes % (0.0-12.0) % Eosinophils % (0.00-5.0) % Basophils % (0.0-0.4) % Absolute Granulocytes (1.4-6.9) x10^3/uL Basophils # (0-0.4) x10^3/uL Sodium 133 L (137-145) mmol/L Potassium 4.6 (3.5-5.1) mmol/L Chloride 101 (98-107) mmol/L Carbon Dioxide 23 (22-30) mmol/L Anion Gap 14.1 (5-15) MEQ/L BUN 12 (9-20) mg/dL Creatinine 1.15 (0.66-1.25) mg/dL Estimated GFR > 60.0 ML/MIN Glucose 223 H (74-106) mg/dL POC Glucometer (74 to 106) mg/dL Calcium 8.9 (8.4-10.2) mg/dL Magnesium 1.8 (1.6-2.3) mg/dL Total Bilirubin 0.40 (0.2-1.3) mg/dL AST 25 (17-59) U/L ALT 23 (0-50) U/L Alkaline Phosphatase 151 H (38-126) U/L Troponin I < 0.012 (0.000-0.034) ng/mL Serum Total Protein 7.4 (6.3-8.2) g/dL Albumin 3.7 (3.5-5.0) g/dL Urinalys Dipstick Clnc Urine Color (YELLOW) Urine Appearance (CLEAR) Urine pH (5-6) Ur Specific [place] (1.005-1.025) POC Urine Protein Conf (Negative) Urine Ketones (NEGATIVE) Urine Nitrite (NEGATIVE) Urine Bilirubin (NEGATIVE) Urine Urobilinogen (0-1) mg/dL Urine Leukocytes (NEGATIVE) Urine WBC (Auto) (0-5) /HPF Urine RBC (Auto) (0-2) /HPF U Hyaline Cast (Auto) (0-2) /LPF U Epithel Cells (Auto) (FEW) /HPF Urine Bacteria (Auto) (NEGATIVE) /HPF Urine RBC (0-5) Prashanth/ul Unidentified Crystals (NEGATIVE) /HPF Other Casts (Auto) (NEGATIVE) /LPF Urine Mucus (Auto) (NEGATIVE) /HPF Ur Culture Indicated? Urine Glucose (NEGATIVE) mg/dL Influenza Type A Ag NEGATIVE (NEGATIVE) Influenza Type B Ag NEGATIVE (NEGATIVE) RSV (PCR) NEGATIVE (Negative) SARS-CoV-2 (PCR) NEGATIVE (NEGATIVE) Slides for Path Review 12/09/21 12/09/21 12/09/21 Range/Units 14:05 14:00 13:53 WBC 6.9 (4.0-10.5) x10^3/uL RBC 4.38 (4.1-5.6) x10^6/uL Hgb 11.3 L (12.5-18.0) g/dL Hct 36.1 L (42-50) % MCV 82.4 (78-100) fL MCH 25.8 L (26-32) pg MCHC 31.3 L (32-36) g/dL RDW 15.7 H (11.5-14.0) % Plt Count 238 (150-450) x10^3/uL MPV 11.1 H (7.5-11.0) fL Gran % 87.7 H (36.0-66.0) % Immature Gran % (Auto) 0.4 (0.00-0.4) % Nucleat RBC Rel Count 0.0 (0.00-0.1) % Eos # (Auto) 0.04 (0-0.5) x10^3/uL Immature Gran # (Auto) 0.03 (0.00-0.03) x10^3u/L Absolute Lymphs (auto) 0.44 L (1.0-4.6) x10^3/uL Absolute Monos (auto) 0.30 (0.0-1.3) x10^3/uL Absolute Nucleated RBC 0.00 (0.00-0.01) x10^3u/L Lymphocytes % 6.4 L (24.0-44.0) % Monocytes % 4.3 (0.0-12.0) % Eosinophils % 0.6 (0.00-5.0) % Basophils % 0.6 (0.0-0.4) % Absolute Granulocytes 6.05 (1.4-6.9) x10^3/uL Basophils # 0.04 (0-0.4) x10^3/uL Sodium (137-145) mmol/L Potassium (3.5-5.1) mmol/L Chloride (98-107) mmol/L Carbon Dioxide (22-30) mmol/L Anion Gap (5-15) MEQ/L BUN (9-20) mg/dL Creatinine (0.66-1.25) mg/dL Estimated GFR ML/MIN Glucose (74-106) mg/dL POC Glucometer 204 H (74 to 106) mg/dL Calcium (8.4-10.2) mg/dL Magnesium (1.6-2.3) mg/dL Total Bilirubin (0.2-1.3) mg/dL AST (17-59) U/L ALT (0-50) U/L Alkaline Phosphatase (38-126) U/L Troponin I (0.000-0.034) ng/mL Serum Total Protein (6.3-8.2) g/dL Albumin (3.5-5.0) g/dL Urinalys Dipstick Clnc MAIN LAB Urine Color YELLOW (YELLOW) Urine Appearance CLEAR (CLEAR) Urine pH 5.5 (5-6) Ur Specific [place] >=1.030 (1.005-1.025) POC Urine Protein Conf TRACE (Negative) Urine Ketones NEGATIVE (NEGATIVE) Urine Nitrite NEGATIVE (NEGATIVE) Urine Bilirubin NEGATIVE (NEGATIVE) Urine Urobilinogen 0.2 (0-1) mg/dL Urine Leukocytes NEGATIVE (NEGATIVE) Urine WBC (Auto) 0-2 (0-5) /HPF Urine RBC (Auto) 0-2 (0-2) /HPF U Hyaline Cast (Auto) 0-2 (0-2) /LPF U Epithel Cells (Auto) NONE (FEW) /HPF Urine Bacteria (Auto) NONE (NEGATIVE) /HPF Urine RBC NEGATIVE (0-5) Prashanth/ul Unidentified Crystals 2-5 (NEGATIVE) /HPF Other Casts (Auto) NEGATIVE (NEGATIVE) /LPF Urine Mucus (Auto) SLIGHT (NEGATIVE) /HPF Ur Culture Indicated? NO Urine Glucose NEGATIVE (NEGATIVE) mg/dL Influenza Type A Ag (NEGATIVE) Influenza Type B Ag (NEGATIVE) RSV (PCR) (Negative) SARS-CoV-2 (PCR) (NEGATIVE) Slides for Path Review YES - Progress Progress: improved Progress Note: 12/09/21 16:35 Blood work-up was done which is grossly unremarkable for any acute findings. I have obtained CT head which is negative. Chest x-ray reviewed by me negative for any acute cardiopulmonary findings. EKG did not show any acute ST elevation and negative troponins. Grossly unremarkable chemistries as well. Patient pressure is improved to 130 systolic and feeling better. Nonfocal neuro exam. Patient was very anxious on presentation and counseled. Patient takes 10 mg lisinopril daily and is given 1 dose in here and does not want me to send the prescription as he has a prescription setting at the pharmacy according to him. Patient on reevaluation feeling better and does not want to stay in the hospital at all and wants to leave. He is being discharged with outpatient follow-up. Discussed signs symptoms of worsening needing return to ER which he seems understanding. Counseled pt/family regarding: lab results, diagnosis, need for follow-up, rad results - Departure Departure Disposition: Home Clinical Impression: Anxiety, Uncontrolled hypertension Condition: Stable Critical Care Time: No Referrals: ALEAH MULTANI MD [Primary Care Provider] - Follow up/PCP as directed (1-2 days for reevaluation) Instructions: High Blood Pressure Emergencies, Anxiety, Adult (DC) Additional Instructions: Monitor your blood pressure regularly, keep a log and follow-up with primary care for reevaluation. Take your blood pressure medications regularly as recommended. Return to ER if having intractable headache, visual disturbance, numbness tingling weakness, speech disturbance, chest pain or shortness of breath etc.
[2021-12-09 14:32] LABS: Appearance CLEAR (CLEAR); Bilirubin NEGATIVE (NEGATIVE); Glucose NEGATIVE (NEGATIVE); Ketones NEGATIVE (NEGATIVE); RBC NEGATIVE Ery/ul (0-5); Specific Gravity >=1.030 (1.005-1.025)
[2021-12-09 14:33] LABS: Dipstick done @ ? MAIN LAB; Nitrite NEGATIVE (NEGATIVE); Ph 5.5 (5-6); Protein,Urine Dip TRACE (Negative); Urobilinogen 0.2 mg/dL (0-1)
[2021-12-09 14:44] LABS: ALBUMIN 3.7 g/dL (3.5-5.0); ALKALINE PHOSPHATASE 151 U/L (38-126); ANION GAP 14.1 MEQ/L (5-15); BLOOD UREA NITROGEN 12 mg/dL (9-20); CHLORIDE 101 mmol/L (98-107); Calcium 8.9 mg/dL (8.4-10.2); Carbon Dioxide 23 mmol/L (22-30); Creatinine 1 1.15 mg/dL (0.66-1.25); EST GLOMERULAR FILTRATION RATE > 60.0 ML/MIN; Glucose 223 mg/dL (74-106); MAGNESIUM 1.8 mg/dL (1.6-2.3); Potassium 4.6 mmol/L (3.5-5.1); SGOT/AST 25 U/L (17-59); SGPT/ALT 23 U/L (0-50); SODIUM 133 mmol/L (137-145); Total Protein 7.4 g/dL (6.3-8.2)
[2021-12-09 14:45] LABS: Hyaline Casts 0-2 /LPF (0-2); Mucus SLIGHT /HPF (NEGATIVE); RBC 0-2 /HPF (0-2); WBC 0-2 /HPF (0-5)
[2021-12-09 14:46] LABS: Urine Cultured Indicated? NO
[2021-12-09 14:58] LABS: INFLUENZA A NEGATIVE (NEGATIVE); INFLUENZA B NEGATIVE (NEGATIVE); RESPIRATORY SYNCTIAL VIRUS NEGATIVE (Negative); SARS-CoV-2 Xpert Express NEGATIVE (NEGATIVE)
[2021-12-09 15:47] LABS: Slide Review 1 YES
[2021-12-09 16:17] VITALS: BP 130/65; PULSE 74
[2021-12-09] MEDS ORDERED: Zestril 10 MG PO STA (16:23)
--- NOTE | 2021-12-09 20:01 | XRAY ---
Indication: Dizziness. Elevated blood pressure. Multiple contiguous axial images obtained through the head without contrast. Comparison: June 26, 2020 Again age-appropriate global atrophy. No acute intracranial hemorrhage, abnormal extra-axial fluid collection, or mass effect. Fourth ventricle is midline without hydrocephalus. Bony calvarium intact. Visualized paranasal sinuses and mastoid air cells are clear. Impression: Continued negative CT head without contrast exam. Comment: Preliminary interpretation made by [facility]. No critical discrepancy.
--- NOTE | 2021-12-09 20:03 | XRAY ---
Indication: Dizziness. Elevated blood pressure. Comparison: June 21, 2020 Portable chest again demonstrates minimal left base fibrosis/scarring and tiny left midlung calcified granuloma. No focal infiltrate, consolidation, or large effusion. Heart not enlarged. Bony thorax intact again with osteopenia and degenerative changes. Impression: Continued nonacute chest with chronic features.
== END 2021-12-09 16:48 | disposition home or self-care (01) ==
LOC: ED 13:29
DX: F41.9 Anxiety disorder, unspecified (principal); I10 Essential (primary) hypertension; R53.1 Weakness; R53.83 Other fatigue; R42 Dizziness and giddiness; E11.9 Type 2 diabetes mellitus without complications; Z79.84 Long term (current) use of oral hypoglycemic drugs; Z79.899 Other long term (current) drug therapy; Z20.828 Contact with and (suspected) exposure to other viral communicable diseases
CPT/HCPCS: 0241U; 36000; 36415; 70450; 71045; 80053; 81015; 82947; 83735; 84484; 85025; 93005; 99284; A9270-GY